=== PATIENT | female | born 1990 | race Caucasian/White ===

== ENCOUNTER 2020-03-05 08:45 | Outpatient (REF) | payer OTHER, SELFPAY | END 2020-03-05 08:46 | disposition home or self-care (01) | LOC: HO.LAB 08:45 | PROVIDERS: PCP Internal Medicine; Referring Provider Internal Medicine; Visit Provider Obstetrics & Gynecology | DX: R87.810 Cervical high risk human papillomavirus (HPV) DNA test positive (principal) | CPT/HCPCS: 88305 ==

== ENCOUNTER 2020-03-31 16:40 | Outpatient (REF) | payer OTHER, SELFPAY ==
[2020-03-31 17:46] LABS: MANUAL DIFF FLAG NO
[2020-03-31 17:52] LABS: Prothrombin Time 11.9 SEC (10.8-13.0)
[2020-03-31 18:03] LABS: Basophils Absolute Auto 0.1 X10*3/uL (0.0-0.2); Eosinophils Absolute Auto 0.1 X10*3/uL (0.0-0.4); Eosinophils Percent Auto 1.4 % (0-4); Imm Gran Abs Auto 0.01 X10*3/uL (0.00-0.03); Imm Gran Pct Auto 0.1 % (0.0-0.4); Lymphocytes Absolute Auto 2.2 X10*3/uL (1.2-4.9); Lymphocytes Percent Auto 30.6 % (20-40); Mean Corpuscular HGB Conc 33.3 g/dl (31.0-35.0); Mean Corpuscular Volume 92.9 fL (80-98); Mean Platelet Volume 12.2 fL (9.4-12.3); Monocytes Absolute Auto 0.5 X10*3/uL (0.1-1.2); Monocytes Percent Auto 7.4 % (2-11); Neutrophils Absolute Auto 4.3 X10*3/uL (2.0-8.3); Neutrophils Percent Auto 59.5 % (45-73); Platelet Count 247 X10*3/uL (160-400); Red Blood Count 4.52 X10*6/uL (4.20-5.50); Red Cell Distribution Width 12.4 % (11.0-16.0); White Blood Count 7.2 X10*3/uL (4.8-10.8)
[2020-03-31 18:10] LABS: Anion Gap 10 (12-20); Blood Urea Nitrogen 9 mg/dL (9-16); Carbon Dioxide 29 mmol/L (22-29); Chloride 102 mmol/L (96-108); Potassium 4.3 mmol/l (3.3-5.1); Sodium 137 mmol/L (135-145)
[2020-03-31 18:11] LABS: Alanine Aminotransferase 21 U/L (0-31); Albumin Level 4.4 g/dL (3.5-5.0); Alkaline Phosphatase 86 U/L (39-117); Aspartate Amino Transferase 22 U/L (5-31); Bilirubin Total 0.5 mg/dL (0.0-1.0); Calcium 9.7 mg/dL (8.4-10.2); Estimated Glomerular Filt Rate > 60; Glucose Random 83 mg/dL (60-115); Total Protein 7.3 g/dL (6.5-8.0)
[2020-03-31 18:33] LABS: Vitamin D 25-OH Total 17.9 ng/mL (>30)
== END 2020-03-31 16:41 | disposition home or self-care (01) ==
LOC: HO.LAB 16:40
PROVIDERS: Visit Provider Internal Medicine Gastroenterology
DX: K70.10 Alcoholic hepatitis without ascites (principal)
CPT/HCPCS: 36415; 80053; 82306; 85025; 85610

== ENCOUNTER → 2020-04-01 09:03 | Outpatient (BNVA) | payer OTHER, SELFPAY | PROVIDERS: PCP Physician Assistant; Visit Provider Internal Medicine Gastroenterology | DX: K76.0 Fatty (change of) liver, not elsewhere classified (principal) | CPT/HCPCS: 99212 ==

== ENCOUNTER 2020-04-14 09:02 | Outpatient (REF) | payer OTHER, SELFPAY ==
--- NOTE | 2020-04-14 09:05 | US_ITS ---
EXAMINATION: US COMPLETE ABDOMEN WITH LIVER ELASTOGRAPHY CLINICAL INFORMATION: Fatty change of liver. COMPARISON: None. TECHNIQUE: Real-time imaging of the abdominal viscera. Noninvasive ultrasound liver fibrosis assessment is performed using Tyrel ElastPQ point quantification shear wave elastography (pSWE) with a 5 MHz transducer. Multiple elastography samples are obtained. FINDINGS: PANCREAS: Normal. The visualized pancreatic head and body are normal in appearance. The remainder of the pancreas is obscured from visualization by the overlying bowel gas. ABDOMINAL AORTA: The proximal, middle, and distal aortic segments are normal in caliber. INFERIOR VENA CAVA: Visualized portions are normal. LIVER: Normal. The liver demonstrates normal size, contour and echogenicity. No focal lesion or intrahepatic biliary duct dilatation. The right lobe measures 13.9 cm in length. The left lobe measures 12.9 cm in length. There is hepatopedal flow seen in middle portal vein on Doppler exam. Shear wave elastography provides a median stiffness of 1.55 m/s (reference: normal median stiffness is 0.81 - 1.22 m/s). The IQR/median stiffness to assess sampling precision is 0.08 (reference: optimal IQR/median stiffness is under 0.3). GALLBLADDER: Normal. The gallbladder is physiologically distended without evidence of stones, sludge, polyps, wall thickening or pericholecystic fluid. COMMON BILE DUCT: Normal in caliber measuring 0.2 cm in diameter. RIGHT KIDNEY: Normal. No hydronephrosis. No renal calculi or focal parenchymal lesions. The kidney measures 11.2 cm in maximum dimension. LEFT KIDNEY: Normal. No hydronephrosis. No renal calculi or focal parenchymal lesions. The kidney measures 11.8 cm in maximum dimension. SPLEEN: Normal. The spleen measures 12.2 cm in maximum dimension. There is a small splenule noted measuring 0.9 x 1.0 x 1.0 cm. FREE FLUID: None. US/US abdomen comp w elastography IMPRESSION: 1. Unremarkable complete abdominal ultrasound. Small accessory splenule noted. 2. Elastography: [id number] liver fibrosis.
== END 2020-04-14 09:03 | disposition home or self-care (01) ==
LOC: HO.US 09:02
PROVIDERS: Visit Provider Internal Medicine Gastroenterology
DX: K76.0 Fatty (change of) liver, not elsewhere classified (principal)
CPT/HCPCS: 76705; 76981

== ENCOUNTER 2020-10-01 14:42 | Outpatient (REF) | payer OTHER, SELFPAY ==
[2020-10-01 15:34] LABS: Hematocrit 42.3 % (37-47); Hemoglobin 13.9 g/dl (12.0-16.0); Mean Corpuscular HGB Conc 32.9 g/dl (31.0-35.0); Mean Corpuscular Hemoglobin 30.8 pg (27.0-33.0); Mean Corpuscular Volume 93.8 fL (80-98); Platelet Count 178 X10*3/uL (160-400); Red Blood Count 4.51 X10*6/uL (4.20-5.50); Red Cell Distribution Width 13.8 % (11.0-16.0); White Blood Count 6.6 X10*3/uL (4.8-10.8)
[2020-10-01 15:51] LABS: Alanine Aminotransferase 251 U/L (0-31); Albumin Level 4.6 g/dL (3.5-5.0); Alkaline Phosphatase 82 U/L (39-117); Anion Gap 13 (12-20); Aspartate Amino Transferase 148 U/L (5-31); Bilirubin Direct 0.2 mg/dL (0.0-0.5); Bilirubin Total 0.5 mg/dL (0.0-1.0); Blood Urea Nitrogen 11 mg/dL (9-16); Calcium 9.8 mg/dL (8.4-10.2); Carbon Dioxide 26 mmol/L (22-29); Chloride 102 mmol/L (96-108); Estimated Glomerular Filt Rate > 60; Glucose Random 93 mg/dL (60-115); Potassium 4.2 mmol/L (3.3-5.1); Sodium 137 mmol/L (135-145); Total Protein 7.5 g/dL (6.5-8.0)
[2020-10-01 16:04] LABS: Gamma Glutamyl Transpeptidase 176 U/L (7-33)
[2020-10-01 16:07] LABS: TSH reflex Free T4 0.56 uIU/mL (0.32-4.0)
== END 2020-10-01 14:43 | disposition home or self-care (01) ==
LOC: HO.LAB 14:42
PROVIDERS: Internal Medicine Gastroenterology; PCP Physician Assistant; Visit Provider Physician Assistant
DX: K76.0 Fatty (change of) liver, not elsewhere classified (principal); I10 Essential (primary) hypertension
CPT/HCPCS: 36415; 80053; 80076; 82248; 82977; 84443; 85027

== ENCOUNTER 2022-08-10 16:30 | Outpatient (REF) | payer BC, SELFPAY ==
[2022-08-10 17:23] LABS: Hematocrit 42.1 % (37.0-47.0); Hemoglobin 13.6 g/dl (12.0-16.0); Mean Corpuscular HGB Conc 32.3 g/dl (31.0-35.0); Mean Corpuscular Hemoglobin 29.4 pg (27.0-33.0); Mean Corpuscular Volume 90.9 fL (80.0-98.0); Mean Platelet Volume 11.8 fL (9.4-12.3); Platelet Count 245 X10*3/uL (160-400); Red Blood Count 4.63 X10*6/uL (4.20-5.50); Red Cell Distribution Width 13.2 % (11.0-16.0); White Blood Count 6.9 X10*3/uL (4.8-10.8)
[2022-08-10 18:03] LABS: Alanine Aminotransferase 15 U/L (0-31); Albumin Level 4.4 g/dL (3.5-5.0); Alkaline Phosphatase 73 U/L (39-117); Anion Gap 15 (12-20); Aspartate Amino Transferase 13 U/L (5-31); Bilirubin Direct < 0.2 mg/dL (0.0-0.5); Bilirubin Total 0.3 mg/dL (0.0-1.0); Blood Urea Nitrogen 12 mg/dL (9-16); Calcium 9.5 mg/dL (8.4-10.2); Carbon Dioxide 25 mmol/L (22-29); Chloride 103 mmol/L (96-108); Cholesterol 245 mg/dL; Estimated Glomerular Filt Rate > 60; Glucose Random 82 mg/dL (60-115); HDL Cholesterol 60 mg/dL; LDL Cholesterol Calculated 164 mg/dl; Potassium 4.1 mmol/L (3.3-5.1); Sodium 139 mmol/L (135-145); Total Protein 6.8 g/dL (6.5-8.0); Triglycerides 109 mg/dL
[2022-08-10 18:18] LABS: Thyroid Stimulating Hormone 0.36 uIU/mL (0.32-4.0)
== END 2022-08-10 16:31 | disposition home or self-care (01) ==
LOC: HO.LAB 16:30
PROVIDERS: PCP Physician Assistant; Visit Provider Internal Medicine
DX: Z00.00 Encounter for general adult medical examination without abnormal findings (principal); E03.9 Hypothyroidism, unspecified
CPT/HCPCS: 36415; 80048; 80061; 80076; 84443; 85027

== ENCOUNTER 2022-10-28 11:34 | Outpatient (REF) | payer BC, SELFPAY ==
[2022-10-29 05:51] LABS: CT PCR NOT DETECTED (Not Detect.); NG PCR NOT DETECTED (Not Detect.)
[2022-10-29 14:51] LABS: BV Int Neg Control Negative (Negative); BV Int Pos Control Positive (Positive)
[2022-11-01 22:08] LABS: HPV mRNA E6/E7 rflx Not Detected (Not Detected)
== END 2022-10-28 11:35 | disposition home or self-care (01) ==
LOC: HO.LNP 11:34
PROVIDERS: PCP Physician Assistant; Visit Provider Advanced Practice Midwife
DX: Z01.419 Encounter for gynecological examination (general) (routine) without abnormal findings (principal); N87.0 Mild cervical dysplasia; R87.810 Cervical high risk human papillomavirus (HPV) DNA test positive; Z12.39 Encounter for other screening for malignant neoplasm of breast; Z20.2 Contact with and (suspected) exposure to infections with a predominantly sexual mode of transmission
CPT/HCPCS: 0353U; 87480; 87510; 87624; 87660; 88142

== ENCOUNTER 2023-04-24 09:03 | Outpatient (REF) | payer BC, SELFPAY ==
[2023-04-25 11:06] LABS: CT PCR NOT DETECTED (Not Detect.); NG PCR NOT DETECTED (Not Detect.)
[2023-04-25 14:27] LABS: BV Int Neg Control Negative (Negative); BV Int Pos Control Positive (Positive)
[2023-04-28 07:45] LABS: HPV mRNA E6/E7 rflx Not Detected (Not Detected)
== END 2023-04-24 09:04 | disposition home or self-care (01) ==
LOC: HO.LNP 09:03
PROVIDERS: PCP Physician Assistant; Visit Provider Advanced Practice Midwife
DX: Z12.4 Encounter for screening for malignant neoplasm of cervix (principal); Z11.51 Encounter for screening for human papillomavirus (HPV); N89.8 Other specified noninflammatory disorders of vagina; Z20.2 Contact with and (suspected) exposure to infections with a predominantly sexual mode of transmission; R87.610 Atypical squamous cells of undetermined significance on cytologic smear of cervix (ASC-US)
CPT/HCPCS: 0353U; 87480; 87510; 87624; 87660; 88142

== ENCOUNTER 2023-04-24 09:03 | Outpatient (AMB) | payer BC, SELFPAY ==
[2023-04-24 09:06] VITALS: BP 112/70; BMI 19.7
--- NOTE | 2023-04-24 09:06 | A.OFFVIS_ITS ---
Intake Vital Signs 04/24/23 09:06 Height 5 ft 7 in Weight 126 lb BMI 19.7 BP 112/70 Intake Visit Reasons: Repeat pap Corrugated Sheet Material Sheeter Required: No Information Interpreted: non-clinical & clinical Welder And Fitter: Welder And Fitter Present (Maite) Allergies No Known Allergies [No Known Allergies*] Allergy (Verified 04/24/23 09:08) Medication List - Last Reconciled 04/24/23 by Saloni Garcia CNM No Known Home Meds Is last menstrual period known: Yes Last menstrual period: 04/17/23 Post menopausal: No HPI Repeat pap HPI Details Is here for a repeat Pap smear. She had had a history of abnormal Paps in the past and then a gap of care during the pandemic and the Pap was done at her 1st annual exam last October however she had her. And it came back unsatisfactory. She is not sexually active now but if she is its with women in the last time was this summer. Testing for STIs along with the Pap is acceptable to her to be sure but she does not feel she needs blood work. She says she is in good health she works for the [employer]. She has her PCC. [facility] Medical History Hepatic steatosis Vitamin D deficiency Alcohol-induced polyneuropathy Alcoholic hepatitis with ascites Alcohol abuse Surgical History History of abdominal paracentesis History of ankle surgery No significant past surgical history Family History Paternal Grandmother Breast cancer Maternal Grandfather Colon cancer Father Family hx of prostate cancer Mother Hx of skin cancer, basal cell Social History Housing: Apartment Alcohol intake: current Alcohol intake frequency: a few times a week Patient Tobacco Use Status: Former Tobacco user Tobacco use type: Cigarette e-Cigarette/Vaping Use: Currently Using Second Hand Smoke Exposure: No Substance Use Type: Marijuana service: No Current occupational status: employed Sexual orientation: Lesbian/Betancourt/Homosexual Gender identity: Female Cognitive needs: No Hearing needs: No Vision needs: No Female Reproductive History Menstrual Age of Menarche: 13 Duration of menses: 3-5 days Date of last menstrual period: 04/17/23 control method: none Total pregnancies: 0 Date of last pap smear: 10/31/22 (unsatisfactory) Physical Exam Vital Signs: BMI result Body Mass Index 19.7 External Female Exam: normal external appearance and normal appearance of the urethra Speculum Exam - Vagina: normal appearance of the vagina and abnormal vaginal discharge (Yellowish runny may be consistent with post menses testing done) Speculum Exam - Cervix: normal appearance of the cervix (There is a red ish at 10:00 o'clock extending out from os.) and Cervical os closed Assessment & Plan Assessment & Plan (1) Atypical squamous cell changes of undetermined significance (ASCUS) on cervical cytology with positive high risk human papilloma virus (HPV): Comment: Pap done 10/28/2022 menses present... Code(s): R87.610 - Atypical squamous cells of undetermined significance on cytologic smear of cervix (ASC-US); R87.810 - Cervical high risk human papillomavirus (HPV) DNA test positive (2) Vaginal discharge: Code(s): N89.8 - Other specified noninflammatory disorders of vagina Plan Pap was done and testing for STIs was also done reviewed how she can get the results she is on the portal but we will see contact her either way about the Pap. She feels she is in good health otherwise she would prefer for her annual exams to be scheduled 1 year from now so that can be done at the front line supervisor. She said she did not need any other control and if she did have sex with men she would use condoms. 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
== END 2023-04-24 09:41 | disposition home or self-care (01) ==
PROVIDERS: PCP Physician Assistant; Visit Provider Advanced Practice Midwife
DX: R87.610 Atypical squamous cells of undetermined significance on cytologic smear of cervix (ASC-US) (principal); R87.810 Cervical high risk human papillomavirus (HPV) DNA test positive; N89.8 Other specified noninflammatory disorders of vagina
CPT/HCPCS: 99213

== ENCOUNTER 2023-08-24 14:45 | Outpatient (AMB) | payer BC, SELFPAY ==
--- NOTE | 2023-08-24 14:54 | A.OFFPC_ITS ---
Vital Signs 08/24/23 14:57 Height 5 ft 7 in Weight 127 lb 4 oz BMI 19.9 BP 100/70 Blood Pressure Location Lt brachial Position Sitting Pulse 73 Pulse Source Pulse Oximeter Pulse Oximetry (%) 100 Oxygen Delivery Method Room Air Intake Visit Reasons: Annual Physical Intake Note: Patient is here today for a physical. Flux Tube Attendant Required: No Talent Acquisition Relationship Manager: Not Required per policy Accompanied by: Self / Same As Patient Allergies No Known Allergies [No Known Allergies*] Allergy (Verified 08/24/23 14:57) Tobacco use date assessed: 08/24/23 Dental Screening Dental Screen Date: 08/24/23 Did you have a dental visit in the last 12 months?: Yes Did you have a dental problem in the last 6 months where you did not have access to dental care?: No Was dental information given to patient?: Patient has dentist HPI Annual Physical HPI Details 32-year-old female presents to the offic e requesting an annual physical. PFSH Medical History Hepatic steatosis Vitamin D deficiency Alcohol-induced polyneuropathy Alcoholic hepatitis with ascites Alcohol abuse Surgical History History of abdominal paracentesis History of ankle surgery Family History Paternal Grandmother Breast cancer Maternal Grandfather Colon cancer Father Family hx of prostate cancer Mother Hx of skin cancer, basal cell Social History Housing: Apartment Alcohol intake: current Alcohol intake frequency: does not drink Patient Tobacco Use Status: Former Tobacco user Tobacco use type: Cigarette e-Cigarette/Vaping Use: Currently Using Frequency of e-Cigarette/Vaping Use: Daily Second Hand Smoke Exposure: No Substance Use Type: Marijuana service: No Current occupational status: employed Sexual orientation: Lesbian/Betancourt/Homosexual Gender identity: Female Cognitive needs: No Hearing needs: No Vision needs: Yes (glasses) Female Reproductive History Menstrual Age of Menarche: 13 Questionnaire PHQ-9 Over the last 2 weeks, how often have you been bothered by any of the following problems? 1. Little interest or pleasure in doing things: not at all 2. Feeling down, depressed, or hopeless: not at all 3. Trouble falling or staying asleep, or sleeping too much: not at all 4. Feeling tired or having little energy: not at all 5. Poor appetite or overeating: not at all 6. Feeling bad about yourself - or that you are a failure or have let yourself or your family down: not at all 7. Trouble concentrating on things, such as reading the newspaper or watching television: not at all 8. Moving or speaking so slowly that other people could have noticed. Or the opposite - being so fidgety or restless that you have been moving around a lot more than usual: not at all 9. Thoughts that you would be better off or of hurting yourself in some way: not at all Total score: 0 Depression Screening Interpretation: Negative Depression Screening Done: Yes Source: Developed by Drs. Vega Zarco, Stephanie Traore, Francisco Javier Harp and colleagues, with an educational lalo from [employer]. Thrive Questionnaire Date Thrive assessed: 08/24/23 I am a: Patient What is your living situation today?: I have a steady place to live Within the past 12 months, did the food you bought not last and you didn't have the money to get more?: Never true Within the past 12 months, did you worry whether your food would run out before you got money to buy more?: Never true Do you have trouble paying for medicines?: No Do you have trouble getting transportation to medical appointments?: No Do you have trouble paying your heating and electricity bill?: No Do you have trouble taking care of your child, family member or friend?: No Do you have trouble with day-to-day activities such as bathing, preparing meals, shopping, managing finances, etc.?: No Are you currently unemployed and looking for a job?: No Are you interested in more education?: No Currently or been in a relationship where the following occur: no concerns reported THRIVE Score: 0 AUDIT C Alcohol Use Questionnaire (AUDIT-C) 1. How often do you have a drink containing alcohol?: Never Total Score: 0 TIEN-7 AMB Questionnaire TIEN-7 Date TIEN - 7 assessed: 08/24/23 Feeling nervous, anxious, or on edge: 1 = Several days Not being able to stop or control worryin = Not at all Worrying too much about different things: 0 = Not at all Trouble relaxin = Several days Being so restless that it is hard to sit still: 1 = Several days Becoming easily annoyed or irritable: 0 = Not at all Feeling afraid as if something awful might happen: 0 = Not at all Total TIEN-7 score (0-4 normal; 5-9 mild; 10-14 moderate; 15-21 severe): 3 Source: Developed by Drs. Vega Zarco, Stephanie Traore, Francisco Javier Harp and colleagues, with an educational lalo from [employer]. Physical exam (Primary Care) Vital Signs: Last Vital Signs Pulse 73 08/24/23 14:57 BP 100/70 08/24/23 14:57 Pulse Ox 100 08/24/23 14:57 Oxygen Delivery Method Room Air 08/24/23 14:57 BMI result Body Mass Index 19.9 Tobacco/Smoking Status: Tobacco use Status Tobacco use date assessed 08/24/23 08/24/23 14:58 Patient Tobacco Use Status Former Tobacco user 08/24/23 15:04 Tobacco use type Cigarette 08/24/23 15:04 e-Cigarette/Vaping Use Currently Using 08/24/23 15:04 PHQ-9: PHQ-9 Score PHQ-9: Total score 0 08/24/23 14:58 Depression Screening Interpretation: Negative Thrive Assessment: Date of Thrive Assessment Date Thrive assessed 08/24/23 08/24/23 14:58 Currently or been in a relationship where the following occur: no concerns reported Assessment and Plan Assessment & Plan (1) Annual physical exam: Code(s): Z00.00 - Encounter for general adult medical examination without abnormal find ings Plan: Patient in good health. Blood work has been ordered. Continues to abstain from alcohol. Coding Level of Care Code Est Pt Prev Care 18-39y(49701) Diagnoses Annual physical exam Z00.00
[2023-08-24 14:57] VITALS: BP 100/70; PULSE 73; O2SAT 100; BMI 19.9
== END 2023-08-24 16:05 | disposition home or self-care (01) ==
PROVIDERS: PCP Physician Assistant; Visit Provider Internal Medicine
DX: Z00.00 Encounter for general adult medical examination without abnormal findings (principal)
CPT/HCPCS: 99395

== ENCOUNTER 2023-11-07 15:05 | Outpatient (REF) | payer BC, SELFPAY ==
[2023-11-08 03:30] LABS: CT PCR NOT DETECTED (Not Detect.); NG PCR NOT DETECTED (Not Detect.)
[2023-11-08 08:43] LABS: Bacterial Vaginosis PCR NEGATIVE (Negative); Candida Group PCR DETECTED (Not Detect); Candida glab krusei PCR NOT DETECTED (Not Detect); Trichomonas vaginalis PCR NOT DETECTED (Not Detect)
[2023-11-13 20:33] LABS: HPV mRNA E6/E7 rflx Not Detected (Not Detected)
== END 2023-11-07 15:06 | disposition home or self-care (01) ==
LOC: HO.LAB 15:05
PROVIDERS: PCP Physician Assistant; Visit Provider Advanced Practice Midwife
DX: Z01.419 Encounter for gynecological examination (general) (routine) without abnormal findings (principal); Z11.3 Encounter for screening for infections with a predominantly sexual mode of transmission; Z11.51 Encounter for screening for human papillomavirus (HPV); N89.8 Other specified noninflammatory disorders of vagina; N87.0 Mild cervical dysplasia
CPT/HCPCS: 0352U; 0353U; 87624; 88142

== ENCOUNTER 2023-11-07 15:05 | Outpatient (AMB) | payer BC, SELFPAY ==
--- NOTE | 2023-11-07 15:11 | MHC.OFFVIS ---
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 She had an abnormal Pap smear and biopsy in 2019 but did not return for care she returned for care last year and her Pap smear came back unsatisfactory and a repeat Pap was within normal limits in April. At that time she was sexually active with a female partner and did not need control or STI testing currently she has a new male partner and it occurs to her that she probably needs to think about control. Her periods last 5-7 days. She does not smoke but she does vape she did not think she had any particular worries about STIs because she was thinking that testing for HIV in other issues had to do with substance use and she has been clean for a few years with no exposures on that realm. She is interested in talking about control. 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 She has testing blood work that she has to do for her primary care provider she had a history of problems with her liver related to past substance use but she says her liver is good now. [facility] Medical History Hepatic steatosis Vitamin D deficiency Alcohol-induced polyneuropathy Alcoholic hepatitis with ascites Alcohol abuse Surgical History History of abdominal paracentesis History of ankle surgery Family History Paternal Grandmother Breast cancer Maternal Grandfather Colon cancer Father Family hx of prostate cancer Mother Hx of skin cancer, basal cell Social History Housing: Apartment Alcohol intake: current Alcohol intake frequency: does not drink Patient Tobacco Use Status: Former Tobacco user Tobacco use type: Cigarette e-Cigarette/Vaping Use: Currently Using Second Hand Smoke Exposure: No Substance Use Type: Marijuana service: No Current occupational status: employed Sexual orientation: Lesbian/Betancourt/Homosexual Gender identity: Female Cognitive needs: No Hearing needs: No Vision needs: Yes (glasses) Female Reproductive History Menstrual Age of Menarche: 13 Duration of menses: 6-7 days Date of last menstrual period: 10/30/23 control method: none Total pregnancies: 0 Date of last pap smear: 04/25/23 (negative) History of abnormal pap smear: Yes (03/21/2019,abn) Physical Exam Vital Signs: Last Vital Signs BP 118/68 11/07/23 15:12 BMI result Body Mass Index 19.4 Const General: healthy appearing, comfortable, no acute distress, well developed and alert Nutritional Appearance: average body habitus Orientation/consciousness: patient oriented x3 Limitations: no limitations HEENT Head: Yes normocephalic Neck Neck: Yes normal visual inspection Chest Chest palpation & inspection: normal inspection of the chest Breast/axilla inspection: normal inspection of the breasts and normal inspection of the axillae Breast/axilla palpation: normal palpation of the breasts and normal palpation of the axillae Resp Effort & Inspection: normal respiratory effort GI Inspection: Yes normal to inspection, No Abdominal wall edema and No distended Palpation (GI): Soft to palpation and nontender Other: External exam within normal limits vagina pink and moist cervix nulliparous pink smooth normal scant whitish discharge uterus midposition mobile nontender adnexa nontender not enlarged good tone with Kegel. General: Yes bladder normal to palpation External Female Exam: normal external appearance and normal appearance of the urethra Speculum Exam - Vagina: normal appearance of the vagina, normal palpation and normal vaginal discharge Speculum Exam - Cervix: normal appearance of the cervix, normal palpation and nontender Bimanual exam- vagina & uterus: normal bimanual exam, normal palpation, uterine size normal, bladder normal to palpation, consistency normal, normal palpation, uterine mobility normal, uterine shape normal, No Cervical tenderness present, non-tender and no cervical motion tenderness Bimanual Exam- Adnexa, other: normal adnexae, no masses, normal and No adnexal tenderness Neuro General: patient oriented x3 Results Reviewed Results Reviewed: Name: Reji Lewisllian Age/Sex: 32/F Attending: Saloni Garcia CNM : 1990 Submitted by: Saloni Garcia CNM Copies to: Benitez Gracia PA-C MR #: [id number] Status: DEP REF Collected: 04/24/23 Location: [facility] Received: 04/25/23 Interpretation Satisfactory for evaluation. Abundant inflammation. Negative for intraepithelial lesion or malignancy. HPV mRNA E6/E7: NOT DETECTED This assay detects E6/E7 viral messenger RNA (mRNA) from 14 high-risk HPV types (16, 18, 31, 33, 35, 39, 45, 51, 52, 56, 58, 59, 66, 68) HPV testing performed by [facility], [place], [place]. See reference laboratory portion of the EMR for entire report. Clinical Information LMP: 04/17/23 Previous PAP test: 10/31/22, WNL Other history: Unsatisfactory cytological smear of cervix Material Received ThinPrep-Cervical Copies To Benitez Gracia PA-C [address] [place] [address] [address] [id number] [place] [address] [place] [address] Electronically Signed By: MYRIAM Zuniga (ASCP) 05/01/23 1340 The Pap Test is a screening procedure with the inherent possibility of both false negative and false positive results. Results should be interpreted in the context of historic and current clinical findings. Reliability of the Pap Test is enhanced by performing the test on a regular repetitive basis. Patient: Theodora Lewis Age/Sex: 32/F MR#: [id number] Page 1 of 1 Name: Theodora Lewis Specimen #: [id number] Age/Sex: 29/F Attending: Zachary Thorpe MD : 1990 Submitted by: Zachary Thorpe MD Collected: 03/05/20 MR #: [id number] Received: 03/06/20 Status: DEP REF Location: [facility] Diagnosis A. Cervix, 12 o'clock, biopsy: - Low-grade squamous intraepithelial lesion (BIBIANA 1) - No endocervical epithelium seen. B. Cervix, 6 o'clock, biopsy: - Low-grade squamous intraepithelial lesion (BIBIANA 1) - Inflamed endocervical epithelium without atypia. C. Cervix, 2 o'clock, biopsy: Inflamed cervical transformation zone mucosa with reactive changes; no atypia seen. D. Endocervix, curettage: Fragments of endocervical epithelium within normal limits; no atypia seen. COMMENT: The findings are concordant with the patient's recent Pap/cytology specimen (19:C2156; ASCUS with positive HPV) - slide reviewed. Clinical History ACUS, HPV+ Microscopic Description A-D. Microscopic sections reviewed. Material Received A. Cx bx at 12 o'clock B. Cx bx at 6 o'clock C. Cx bx at 2 o'clock D. ECC Gross Description Received in four parts. Part A: Received in formalin labeled Cx bx @ 12 o'clock is a 0.4 cm. in greatest dimension, glistening, semitranslucent, rubbery, kimble, wedge-shaped fragment of mucosa, which is submitted in toto in a single cassette labeled A. Part B: Received in formalin labeled Cx bx @ 6 o'clock is a 0.35 cm. in greatest dimension, glistening, semitranslucent, rubbery, kimble, rectangular fragment of mucosa, which is submitted in toto in a single cassette labeled B. Patient: Theodora Lewis Age/Sex: 29/F MR#: [id number] Page 1 of 2 Assessment & Plan Assessment & Plan (1) Atypical squamous cell changes of undetermined significance (ASCUS) on cervical cytology with positive high risk human papilloma virus (HPV): Comment: Pap done 10/28/2022 menses present- unaatisfact. repeated 04/24/23= neg w neg hpv Code(s): R87.610 - Atypical squamous cells of undetermined significance on cytologic smear of cervix (ASC-US); R87.810 - Cervical high risk human papillomavirus (HPV) DNA test positive Category: Medical (2) Well woman exam with routine gynecological exam: Code(s): Z01.419 - Encounter for gynecological examination (general) (routine) without abnormal findings Category: Medical (3) Breast cancer screening: Code(s): Z12.39 - Encounter for other screening for malignant neoplasm of breast Category: Medical (4) Encounter for screening examination for sexually transmitted disease: Code(s): Z11.3 - Encounter for screening for infections with a predominantly sexual mode of transmission Category: Medical (5) control counseling: Comment: Reviewed all methods including drawbacks and side effects. Code(s): Z30.09 - Encounter for other general counseling and advice on contraception Category: Medical (6) BCP ( control pills) initiation: Comment: Rx sent 11/07/2023 low-dose OCPs. Patient will be getting all of her fasting baseline labs via her primary orders soon consider repeating LFTs in future because of her history. Code(s): Z30.011 - Encounter for initial prescription of contraceptive pills Category: Medical (7) Alcohol use disorder: Comment: Went to rehab, has been sober/in recovery for one year and is doing well, 10/28/22. Category: Medical (8) Hepatic steatosis: Code(s): K76.0 - Fatty (change of) liver, not elsewhere classified Category: Medical (9) BIBIANA I (cervical intraepithelial neoplasia I): Comment: Pap done 10/28/2022 menses present... Pap is unsatisfactory due to insufficient cellular component so that needs to be repeated, HPV however was negative. Code(s): N87.0 - Mild cervical dysplasia Category: Medical Plan See HPI. -----Discussed in this visit the following: healthy balanced diet, regular and consistent exercise, getting recommended health screens, doing the best she can for her particular health concerns, kegel exercises, pap smear screening and followup recommendations, mammography screening and SBE, normal changes in cycles in her life stage--- . Pap smear done secondary to her specific history. Additionally testing done during exam for gonorrhea chlamydia trichomoniasis Gardnerella and Elzbieta and testing offered for blood work for HIV hep B hep C and syphilis after some consideration she did accept the offer for the blood work orders and her plan is to do them when she gets her primary fasting blood work done. Discussed safer sex and also reviewed all of the methods of control and their side effects. -I reviewed with the patient, all of the currently common used methods of control that are available. We reviewed how they work in the body, how they are taken, common side effects, uncommon side effects, precautions, and contraindications. -Discussed also factors that influence their effectiveness and use, and womens satisfaction with the method. -Discussed how each are used, and drawbacks of each method as well. -Methods covered included: condoms, control pills, control patches, control rings, Depo-Provera, Nexplanon, Mirena and Kyleena IUDs, and ParaGard IUDs. All of the above methods were covered in great detail including their side effect profiles and common experiences that women have and ways to mitigate against the negative experiences including attention to diet and exercise patient's with bleeding challenges that may occur her and efforts to time the initiation of the method to this start of the menstrual period. She decided that she would start on pills discussed the concern about her history of liver issues and that if follow-up labs reveal that there was any indication of concern with her liver then we would address that issue at that point. Discussed that due are no studies about the safety of vaping and control pills however she is not sedentary and she is also not obese however she does have the history of the liver problems in the past. Orders: Orders CT NG by PCR Today Z11.3 - Encounter for screening for infections with a predominantly sexual mode of transmission Bacterial Vaginosis Panel Today N89.8 - Other specified noninflammatory disorders of vagina HIV Ab/Ag Today R87.610 - Atypical squamous cells of undetermined significance on cytologic smear of cervix (ASC-US), R87.810 - Cervical high risk human papillomavirus (HPV) DNA test positive, Z01.419 - Encounter for gynecological examination (general) (routine) without abnormal findings, Z11.3 - Encounter for screening for infections with a predominantly sexual mode of transmission, Z12.39 - Encounter for other screening for malignant neoplasm of breast, Z30.011 - Encounter for initial prescription of contraceptive pills, Z30.09 - Encounter for other general counseling and advice on contraception Syphilis Screen Today R87.610 - Atypical squamous cells of undetermined significance on cytologic smear of cervix (ASC-US), R87.810 - Cervical high risk human papillomavirus (HPV) DNA test positive, Z01.419 - Encounter for gynecological examination (general) (routine) without abnormal findings, Z11.3 - Encounter for screening for infections with a predominantly sexual mode of transmission, Z12.39 - Encounter for other screening for malignant neoplasm of breast, Z30.011 - Encounter for initial prescription of contraceptive pills, Z30.09 - Encounter for other general counseling and advice on contraception Pap Smear Today Z01.419 - Encounter for gynecological examination (general) (routine) without abnormal findings Hepatitis B Surface Antigen Today R87.610 - Atypical squamous cells of undetermined significance on cytologic smear of cervix (ASC-US), R87.810 - Cervical high risk human papillomavirus (HPV) DNA test positive, Z01.419 - Encounter for gynecological examination (general) (routine) without abnormal findings, Z11.3 - Encounter for screening for infections with a predominantly sexual mode of transmission, Z12.39 - Encounter for other screening for malignant neoplasm of breast, Z30.011 - Encounter for initial prescription of contraceptive pills, Z30.09 - Encounter for other general counseling and advice on contraception Hepatitis C Antibody Today R87.610 - Atypical squamous cells of undetermined significance on cytologic smear of cervix (ASC-US), R87.810 - Cervical high risk human papillomavirus (HPV) DNA test positive, Z01.419 - Encounter for gynecological examination (general) (routine) without abnormal findings, Z11.3 - Encounter for screening for infections with a predominantly sexual mode of transmission, Z12.39 - Encounter for other screening for malignant neoplasm of breast, Z30.011 - Encounter for initial prescription of contraceptive pills, Z30.09 - Encounter for other general counseling and advice on contraception Medications: New desog-e.estradiol/e.estradiol 0.15-0.02 mgx21 /0.01 mg x 5 1 tab PO DAILY 84 tabs 3RF Coding Level of Care Code Est Pt Prev Care 18-39y(78796) Diagnoses Atypical squamous cell changes of undetermined significance (ASCUS) on cervical cytology with positive high risk human papilloma virus (HPV) R87.610; R87.810 Well woman exam with routine gynecological exam Z01.419 Breast cancer screening Z12.39 Encounter for screening examination for sexually transmitted disease Z11.3 control counseling Z30.09 BCP ( control pills) initiation Z30.011 Alcohol use disorder F10.90 Hepatic steatosis K76.0 BIBIANA I (cervical intraepithelial neoplasia I) N87.0
[2023-11-07 15:12] VITALS: BP 118/68; BMI 19.4
== END 2023-11-07 16:21 | disposition home or self-care (01) ==
LOC: HO.HWSM 15:05
PROVIDERS: PCP Physician Assistant; Visit Provider Advanced Practice Midwife
DX: Z01.419 Encounter for gynecological examination (general) (routine) without abnormal findings (principal); R87.610 Atypical squamous cells of undetermined significance on cytologic smear of cervix (ASC-US); R87.810 Cervical high risk human papillomavirus (HPV) DNA test positive; Z30.011 Encounter for initial prescription of contraceptive pills; Z30.09 Encounter for other general counseling and advice on contraception; F10.90 Alcohol use, unspecified, uncomplicated; K76.0 Fatty (change of) liver, not elsewhere classified; N87.0 Mild cervical dysplasia
CPT/HCPCS: 99395

== ENCOUNTER 2024-02-05 08:07 | Outpatient (REF) | payer BC, SELFPAY ==
[2024-02-05 09:50] LABS: Hemoglobin 14.2 g/dl (12.0-16.0); Mean Corpuscular HGB Conc 33.8 g/dl (31.0-35.0); Mean Corpuscular Hemoglobin 29.8 pg (27.0-33.0); Mean Corpuscular Volume 88.1 fL (80.0-98.0); Mean Platelet Volume 11.4 fL (9.4-12.3); Platelet Count 253 X10*3/uL (160-400); Red Blood Count 4.77 X10*6/uL (4.20-5.50); Red Cell Distribution Width 12.4 % (11.0-16.0); White Blood Count 7.7 X10*3/uL (4.8-10.8)
[2024-02-05 10:24] LABS: Alanine Aminotransferase 10 U/L (0-31); Albumin Level 4.3 g/dL (3.5-5.0); Alkaline Phosphatase 50 U/L (39-117); Anion Gap 11 (12-20); Aspartate Amino Transferase 16 U/L (5-31); Bilirubin Direct 0.1 mg/dL (0.0-0.5); Bilirubin Total 0.7 mg/dL (0.0-1.0); Blood Urea Nitrogen 8 mg/dL (9-16); Calcium 9.9 mg/dL (8.4-10.2); Carbon Dioxide 27 mmol/L (22-29); Chloride 105 mmol/L (96-108); Cholesterol 185 mg/dL (<200); Estimated Glomerular Filt Rate > 60; Glucose Random 90 mg/dL (60-115); HDL Cholesterol 58 mg/dL (>40); LDL Cholesterol Calculated 110 mg/dL (<100); Potassium 3.6 mmol/L (3.3-5.1); Sodium 139 mmol/L (135-145); Total Protein 6.9 g/dL (6.5-8.0); Triglycerides 87 mg/dL (<150)
[2024-02-05 10:43] LABS: Thyroid Stimulating Hormone 0.94 uIU/mL (0.32-4.0)
[2024-02-05 11:02] LABS: Appearance Urine Cloudy; Color Urine Yellow; Glucose Urine UA Negative (Negative); Leukocyte Esterase Urine Negative (Negative); Nitrite Urine Negative (Negative); Specific Gravity - Urine >= 1.030 (1.005-1.025); Urine Blood Negative (Negative); Urine Ketones Trace mg/dL (Negative); Urine Protein Trace mg/dL (Neg-Trace)
[2024-02-05 13:27] LABS: Syphilis Screen Nonreactive (Nonreactive)
[2024-02-05 13:36] LABS: HIV AB/AG Nonreactive (Nonreactive); HIV Num 1 0.05 S/CO (0.00-0.99); Hepatitis B Surface Antigen Negative (Negative); ~Hepatitis C Antibody Nonreactive (Nonreactive)
== END 2024-02-05 08:08 | disposition home or self-care (01) ==
LOC: HO.LAB 08:07
PROVIDERS: Absent Provider Advanced Practice Midwife; PCP Physician Assistant; Visit Provider Internal Medicine
DX: Z01.419 Encounter for gynecological examination (general) (routine) without abnormal findings (principal); G62.1 Alcoholic polyneuropathy; R87.610 Atypical squamous cells of undetermined significance on cytologic smear of cervix (ASC-US); R87.810 Cervical high risk human papillomavirus (HPV) DNA test positive; Z11.3 Encounter for screening for infections with a predominantly sexual mode of transmission
CPT/HCPCS: 36415; 80048; 80061; 80076; 81003; 84443; 85027; 86780; 86803; 87340; 87389

== ENCOUNTER 2024-02-05 08:07 | Outpatient (AMB) | payer BC, SELFPAY ==
--- NOTE | 2024-02-05 08:19 | MHC.PC.OV ---
Vital Signs 02/05/24 08:21 Height 5 ft 7 in Weight 123 lb BMI 19.3 BP 110/70 Blood Pressure Location Lt brachial Position Sitting Intake Visit Reasons: [facility] Lead Consultant Required: No Accompanied by: Self / Same As Patient Allergies No Known Allergies [No Known Allergies*] Allergy (Verified 02/05/24 08:39) Medication List - Last Reconciled 02/05/24 by Deangelo Galindo MD No Known Home Meds Tobacco use date assessed: 08/24/23 Dental Screening Dental Screen Date: 08/24/23 HPI Mental Health HPI Details 33-year-old female presents to the office to discuss acute medical condition. Patient is reporting panic attacks at. 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 She sees things that are not present and at times has heard voices. She is clearly able to determine that these are not real. On more than 1 occasion, she had to stop work, go back to the post office and request a ride home. Also complains of lack of sleep. Patient has been intermittently taking medications for panic attacks in the past few years. She is not on any medication in the last year and a half. The last medication she tried was Lexapro in admits to being noncompliant to it. Patient smokes marijuana. Denies any other substance use, alcohol use. PFSH Medical History Hepatic steatosis Vitamin D deficiency Alcohol-induced polyneuropathy Alcoholic hepatitis with ascites Alcohol abuse Surgical History History of abdominal paracentesis History of ankle surgery Family History Paternal Grandmother Breast cancer Maternal Grandfather Colon cancer Father Family hx of prostate cancer Mother Hx of skin cancer, basal cell Social History Housing: Apartment Alcohol intake: current Alcohol intake frequency: does not drink Patient Tobacco Use Status: Former Tobacco user Tobacco use type: Cigarette e-Cigarette/Vaping Use: Currently Using Second Hand Smoke Exposure: No Substance Use Type: Marijuana service: No Current occupational status: employed Current occupational exposures/hazards: No Sexual orientation: Lesbian/Betancourt/Homosexual Gender identity: Female Cognitive needs: No Hearing needs: No Vision needs: Yes (glasses) Female Reproductive History Menstrual Age of Menarche: 13 Questionnaire PHQ-9 Over the last 2 weeks, how often have you been bothered by any of the following problems? 1. Little interest or pleasure in doing things: not at all 2. Feeling down, depressed, or hopeless: several days 3. Trouble falling or staying asleep, or sleeping too much: several days 4. Feeling tired or having little energy: several days 5. Poor appetite or overeating: not at all 6. Feeling bad about yourself - or that you are a failure or have let yourself or your family down: not at all 7. Trouble concentrating on things, such as reading the newspaper or watching television: several days 8. Moving or speaking so slowly that other people could have noticed. Or the opposite - being so fidgety or restless that you have been moving around a lot more than usual: several days 9. Thoughts that you would be better off or of hurting yourself in some way: not at all Total score: 5 Source: Developed by Drs. Vega Zarco, Stephanie Traore, Francisco Javier Harp and colleagues, with an educational lalo from [employer]. Thrive Questionnaire Date Thrive assessed: 02/05/24 I am a: Patient What is your living situation today?: I have a steady place to live Within the past 12 months, did the food you bought not last and you didn't have the money to get more?: Never true Within the past 12 months, did you worry whether your food would run out before you got money to buy more?: Never true Do you have trouble paying for medicines?: No Do you have trouble getting transportation to medical appointments?: No Do you have trouble paying your heating and electricity bill?: No Do you have trouble taking care of your child, family member or friend?: No Do you have trouble with day-to-day activities such as bathing, preparing meals, shopping, managing finances, etc.?: No Are you currently unemployed and looking for a job?: No Are you interested in more education?: No Please select the resources that you would like help with: None Currently or been in a relationship where the following occur: No concerns reported THRIVE Score: 0 AUDIT C Alcohol Use Questionnaire (AUDIT-C) 1. How often do you have a drink containing alcohol?: Never Total Score: 0 TIEN-7 AMB Questionnaire TIEN-7 Date TIEN - 7 assessed: 02/05/24 Feeling nervous, anxious, or on edge: 1 = Several days Not being able to stop or control worryin = Not at all Worrying too much about different things: 1 = Several days Trouble relaxin = Several days Being so restless that it is hard to sit still: 1 = Several days Becoming easily annoyed or irritable: 1 = Several days Feeling afraid as if something awful might happen: 0 = Not at all Total TIEN-7 score (0-4 normal; 5-9 mild; 10-14 moderate; 15-21 severe): 5 Source: Developed by Drs. Vega Zarco, Stephanie Traore, Francisco Javier Harp and colleagues, with an educational lalo from [employer]. Physical exam (Primary Care) Vital Signs: Last Vital Signs BP 110/70 02/05/24 08:21 BMI result Body Mass Index 19.3 Tobacco/Smoking Status: Tobacco use Status Tobacco use date assessed 08/24/23 02/05/24 08:20 Patient Tobacco Use Status Former Tobacco user 02/05/24 08:20 Tobacco use type Cigarette 02/05/24 08:20 e-Cigarette/Vaping Use Currently Using 02/05/24 08:20 PHQ-9: PHQ-9 Score PHQ-9: Total score 5 02/05/24 08:25 Thrive Assessment: Date of Thrive Assessment Date Thrive assessed 02/05/24 02/05/24 08:25 Currently or been in a relationship where the following occur: No concerns reported Const General: cooperative and healthy appearing Nutritional Appearance: well nourished Orientation/consciousness: patient oriented x3 Limitations: no limitations HENMT Head: Yes normal to inspection Eyes General: appearance normal, both eyes and all related structures Neck Neck: Yes normal visual inspection Chest Chest palpation & inspection: normal palpation of entire chest wall Resp Effort & Inspection: normal respiratory effort Neuro General: patient oriented x3 Assessment and Plan Assessment & Plan (1) Anxiety disorder, unspecified: Code(s): F41.9 - Anxiety disorder, unspecified Plan: This is a preliminary diagnosis. Seroquel has been started to help with sleep. [facility]. Patient is going to need the expertise of a psychiatrist to determine the origin of the visual and auditory hallucinations. Coding Level of Care Code Est Pt Level 4 (69668) Complex EM visit Add On G2211 Diagnoses Anxiety disorder, unspecified F41.9
[2024-02-05 08:21] VITALS: BP 110/70; BMI 19.3
== END 2024-02-05 08:39 | disposition home or self-care (01) ==
PROVIDERS: PCP Physician Assistant; Visit Provider Internal Medicine
DX: F41.9 Anxiety disorder, unspecified (principal)

== ENCOUNTER 2024-03-19 15:34 | Outpatient (AMB) | payer BC, SELFPAY ==
--- NOTE | 2024-03-19 16:15 | MHC.OFFVISPS ---
Intake Intake Visit Reasons: consult Occupational Therapist Aide Required: No Allergies No Known Allergies [No Known Allergies*] Allergy (Verified 02/05/24 08:39) Medication List - Last Reconciled 03/19/24 by Lizzie Coyle APRN quetiapine (Seroquel) 100 mg PO BEDTIME HPI- Psychiatric Chief Complaint: consult HPI Narrative: Patient is 33-year-old woman referred by her primary care physician for anxiety and auditory or visual hallucinations. Today the patient says that she only sees and hears hallucinations when she has not slept for days at a time. She reports that her sleep is episodically disrupted. She also reports anxiety several days a week and it periodically causes her great difficulty functioning. She minimizes depression but does have trouble concentrating focusing prioritizing planning completing tasks she reports lack of interest lack of pleasure in activities feeling down and hopeless and trouble sleeping. She is approximately 2-1/2 years sober from heavy alcohol use. She has been prescribed Seroquel but has only used it twice because it causes too much sedation. She also reports using trazodone Lexapro Prozac and Wellbutrin in the past none of which she found effective. Past Psychiatric History: History of inpatient treatment for alcohol addiction IOP for alcohol Subjective Subjective Subjective Medication Compliance: Yes Side effects from medications: No Review of Systems Medical Review of Systems: unchanged Mental Status Exam Mental Status Exam Patient Appearance: Appropriate Patient Orientation: Person, Place, Time and Situation Level of Consciousness: Awake, Appropriate and Alert Patient Behavior: Resistive to Care Mood Description: Withdrawn and Flat Affect Description: Withdrawn and Flat Patient Cognition Impaired: No Ability to Follow Directions: Good Speech Pattern: Clear and Monotone Memory Description: Intact Hallucinations: Auditory (minimizes) and Visual (minimizes) Delusions: Not Present Thought Process: Distracted Thought Content: positive for Loose Associations Judgement: Fair Assessment and Plan Assessment & Plan (1) TIEN (generalized anxiety disorder): Status: Acute Code(s): F41.1 - Generalized anxiety disorder (2) Insomnia: Status: Acute Qualifiers: Insomnia type: unspecified Qualified Code(s): G47.00 - Insomnia, unspecified Code(s): G47.00 - Insomnia, unspecified Plan pt declined risperdal or zyprexa declined buspar or sertraline agreed to amitriptyline 10mg at bedtime daily start magnesium glycinate 100mg BID stat vitamin B50 one tab daily retrun in 2-3 weeks Medications: New amitriptyline 10 mg PO BEDTIME 30 tabs 2RF Discontinued quetiapine (Seroquel) Discontinued Reason: Doctor's Order 100 mg PO BEDTIME 60 tabs 0RF Counseling and coordination of Care Pt. Self Management counseling: Maintenance-social rhythm, Mod caffeine/ETOH intake, Sleep hygiene and Behavior activation Medication management counseling: Effectiveness, Side effects, Dosing range, Duration, Drug interaction and Adherence Diagnosis and Prognosis Counseling: Accuracy of diagnosis, Prognosis over time, Impact of diagnosis on life functions, Impact of family relationship, Problematic behaviors secondary to diagnosis and Adequacy of current interventions Details: I spent 75 minutes reviewing the record, seeing the patient and documenting in the medical record. Counseling provided to the patient/caregiver as outlined below. Addressed patient/caregiver concerns regarding current medication regime including effective adherence. Addressed patient/caregiver concerns regarding diagnosis and prognosis including accuracy of diagnosis, prognosis over time, impact of diagnosis. Addressed patient/caregiver concerns regarding impact of recent stressors. PFSH Medical History Hepatic steatosis Vitamin D deficiency Alcohol-induced polyneuropathy Alcoholic hepatitis with ascites Alcohol abuse Surgical History History of abdominal paracentesis History of ankle surgery Family History Paternal Grandmother Breast cancer Maternal Grandfather Colon cancer Father Family hx of prostate cancer Mother Hx of skin cancer, basal cell Social History Housing: Apartment Alcohol intake: current Alcohol intake frequency: does not drink Patient Tobacco Use Status: Former Tobacco user Tobacco use type: Cigarette e-Cigarette/Vaping Use: Currently Using Second Hand Smoke Exposure: No Substance Use Type: Marijuana service: No Current occupational status: employed Current occupational exposures/hazards: No Sexual orientation: Lesbian/Betancourt/Homosexual Gender identity: Female Cognitive needs: No Hearing needs: No Vision needs: Yes (glasses) Social History: Patient grew up in [place] with both parents and a sister 3 years older than her. 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 She has recently started a new relationship and is dating. Substance History: Significant alcohol use in the past with alcohol-induced polyneuropathy alcohol hepatitis with ascites she is 2.5 years sober. She vapes and smokes a small amount of marijuana in the evening several times a week. She uses no other street drugs Trauma History: A friend from suicide 2 weeks ago. Another friend was murdered last year and [place] Coding Level of Care Code Psych Diag Eval w/Med ([id number]) Diagnoses TIEN (generalized anxiety disorder) F41.1 Insomnia, unspecified type G47.00 Insomnia type: unspecified
== END 2024-03-19 16:52 | disposition home or self-care (01) ==
LOC: HO.HOP 15:34
PROVIDERS: PCP Internal Medicine; Visit Provider Clinical Nurse Specialist Psychiatric/Mental Health
DX: F41.1 Generalized anxiety disorder (principal); G47.00 Insomnia, unspecified
CPT/HCPCS: 90792

== ENCOUNTER → 2024-03-19 15:34 | Outpatient (BNVA) | payer BC, SELFPAY | PROVIDERS: PCP Internal Medicine; Visit Provider Clinical Nurse Specialist Psychiatric/Mental Health | DX: F41.1 Generalized anxiety disorder (principal); G47.00 Insomnia, unspecified | CPT/HCPCS: 90792 ==

== ENCOUNTER 2024-04-30 17:50 | Outpatient (AMB) | payer BC, SELFPAY ==
--- NOTE | 2024-04-30 14:03 | MHC.OFFVISPS ---
Intake Intake Visit Reasons: f/u consultation Dredge Lever Operator Required: No Allergies No Known Allergies [No Known Allergies*] Allergy (Verified 02/05/24 08:39) Medication List - Last Reconciled 04/30/24 by Lizzie Coyle APRN amitriptyline 10 mg PO BEDTIME HPI- Psychiatric Chief Complaint: f/u consultation HPI Narrative: pt reports she tried the amitriptyline for 2 weeks and it didn't help her sleep so she stopped it; she thinks it might have helped with her anxiety. she would like to try a higher dose; she also tried a friend's hydroxyzine for sleep. she says it helped her sleep much better with no side effects.she denies any other changes; no ETOH use; she reports high stress with work right now due to holiday season. she denies SI or HI Past Psychiatric History: History of inpatient treatment for alcohol addiction IOP for alcohol Subjective Subjective Subjective Medication Compliance: Yes Side effects from medications: No Review of Systems Medical Review of Systems: unchanged Mental Status Exam Mental Status Exam Patient Appearance: Well Grooomed and Appropriate Patient Orientation: Person, Place, Time and Situation Level of Consciousness: Awake, Appropriate and Alert Patient Behavior: Appropriate and Cooperative Mood Description: Anxious Affect Description: Anxious Patient Cognition Impaired: No Ability to Follow Directions: Good Speech Pattern: Clear Memory Description: Intact Hallucinations: None Delusions: Not Present Thought Process: Intact and Distracted Thought Content: positive for Intact Judgement: Good Telehealth Telehealth Telehealth Platform: Other (please specify) ([email or web address]) Location of provider rendering services: practice address Location of patient: other (at work in the [facility] [employer]) Patient Identification confirmed using: Name, : Yes Telehealth method: video Patient verbally consented to treatment: Yes Patient verbally consented to billing insurance company: Yes Patient informed of any privacy concerns related to visit: Yes Minutes spent on Phone/Video with Pt.: 30 Assessment and Plan Assessment & Plan (1) Insomnia: Status: Acute Qualifiers: Insomnia type: unspecified Qualified Code(s): G47.00 - Insomnia, unspecified Code(s): G47.00 - Insomnia, unspecified (2) TIEN (generalized anxiety disorder): Status: Acute Code(s): F41.1 - Generalized anxiety disorder Plan start amitriptyline 25 mg at bedtime If not asleep in one hour okay to take hydroxyzine 25mg at bedtime prn insomnia Medications: New amitriptyline 25 mg PO BEDTIME 30 tabs 1RF hydroxyzine HCl 25 mg PO BEDTIME PRN 30 tabs 2RF sleep Counseling and coordination of Care Pt. Self Management counseling: Maintenance-social rhythm, Mod caffeine/ETOH intake, Sleep hygiene, Behavior activation and General coping skills Medication management counseling: Effectiveness, Side effects, Dosing range, Duration, Drug interaction and Adherence Diagnosis and Prognosis Counseling: Accuracy of diagnosis, Prognosis over time, Impact of diagnosis on life functions, Impact of family relationship, Problematic behaviors secondary to diagnosis and Adequacy of current interventions Details: I spent 35 minutes reviewing the record, seeing the patient and documenting in the medical record. Counseling provided to the patient/caregiver as outlined below. Addressed patient/caregiver concerns regarding current medication regime including effective adherence. Addressed patient/caregiver concerns regarding diagnosis and prognosis including accuracy of diagnosis, prognosis over time, impact of diagnosis. Addressed patient/caregiver concerns regarding impact of recent stressors. PFSH Medical History Hepatic steatosis Vitamin D deficiency Alcohol-induced polyneuropathy Alcoholic hepatitis with ascites Alcohol abuse Surgical History History of abdominal paracentesis History of ankle surgery Family History Paternal Grandmother Breast cancer Maternal Grandfather Colon cancer Father Family hx of prostate cancer Mother Hx of skin cancer, basal cell Social History Housing: Apartment Alcohol intake: current Alcohol intake frequency: does not drink Patient Tobacco Use Status: Former Tobacco user Tobacco use type: Cigarette e-Cigarette/Vaping Use: Currently Using Second Hand Smoke Exposure: No Substance Use Type: Marijuana service: No Current occupational status: employed Current occupational exposures/hazards: No Sexual orientation: Lesbian/Betancourt/Homosexual Gender identity: Female Cognitive needs: No Hearing needs: No Vision needs: Yes (glasses) Social History: Patient grew up in [place] with both parents and a sister 3 years older than her. 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 She has recently started a new relationship and is dating. Substance History: Significant alcohol use in the past with alcohol-induced polyneuropathy alcohol hepatitis with ascites she is 2.5 years sober. She vapes and smokes a small amount of marijuana in the evening several times a week. She uses no other street drugs Trauma History: A friend from suicide 2 weeks ago. Another friend was murdered last year and [place] Coding Level of Care Code Tele Est Pt Level 4 (49955) Diagnoses Insomnia, unspecified type G47.00 Insomnia type: unspecified TIEN (generalized anxiety disorder) F41.1
== END 2024-04-30 17:51 | disposition home or self-care (01) ==
LOC: HO.HOP 17:50
PROVIDERS: PCP Internal Medicine; Visit Provider Clinical Nurse Specialist Psychiatric/Mental Health
DX: F41.1 Generalized anxiety disorder (principal); G47.00 Insomnia, unspecified
CPT/HCPCS: 99214

== ENCOUNTER 2024-05-28 17:08 | Outpatient (AMB) | payer BC, SELFPAY ==
--- NOTE | 2024-05-28 16:56 | MHC.OFFVISPS ---
Intake Intake Visit Reasons: f/u consultation Allergies No Known Allergies [No Known Allergies*] Allergy (Verified 02/05/24 08:39) Medication List - Last Reconciled 05/28/24 by Lizzie Coyle APRN amitriptyline 25 mg PO BEDTIME hydroxyzine HCl 25 mg PO BEDTIME PRN HPI- Psychiatric Chief Complaint: f/u consultation HPI Narrative: pt reports sleeping a little better ; taking only the amitriptyline 25 mg at night; PHQ9=6 GAD7 = 1 . Pt reports increase fatigue during the day despite sleeping 1130 pm to 630 am. No ETOH use. no hallucinations. She is approximately 2-1/2 years sober from heavy alcohol use. past trial of Seroquel caused too much sedation. She also reports using trazodone Lexapro Prozac and Wellbutrin in the past none of which she found effective. Past Psychiatric History: History of inpatient treatment for alcohol addiction IOP for alcohol Subjective Subjective Subjective Medication Compliance: Yes Side effects from medications: No Review of Systems Medical Review of Systems: unchanged Mental Status Exam Mental Status Exam Patient Appearance: Well Grooomed and Appropriate Patient Orientation: Person, Place and Situation Level of Consciousness: Awake Patient Behavior: Appropriate and Cooperative Mood Description: Calm Affect Description: Calm Patient Cognition Impaired: No Ability to Follow Directions: Good Speech Pattern: Clear Memory Description: Intact Hallucinations: None Delusions: Not Present Thought Process: Intact Thought Content: positive for Intact Judgement: Fair Assessment and Plan Assessment & Plan (1) Insomnia: Status: Acute Qualifiers: Insomnia type: unspecified Qualified Code(s): G47.00 - Insomnia, unspecified Code(s): G47.00 - Insomnia, unspecified (2) TIEN (generalized anxiety disorder): Status: Acute Code(s): F41.1 - Generalized anxiety disorder Plan continue amitriptyline 25 mg daily add vitamin D 1000 IU add B complex vitmain daily Medications: Refilled amitriptyline 25 mg PO BEDTIME 30 tabs 1RF Counseling and coordination of Care Pt. Self Management counseling: Maintenance-social rhythm, Mod caffeine/ETOH intake, Nutrition education and improvement, Sleep hygiene, Behavior activation and General coping skills Medication management counseling: Effectiveness, Side effects, Dosing range, Duration, Drug interaction and Adherence Diagnosis and Prognosis Counseling: Accuracy of diagnosis, Prognosis over time, Impact of diagnosis on life functions, Impact of family relationship, Problematic behaviors secondary to diagnosis and Adequacy of current interventions Details: I spent 35 minutes reviewing the record, seeing the patient and documenting in the medical record. Counseling provided to the patient/caregiver as outlined below. Addressed patient/caregiver concerns regarding current medication regime including effective adherence. Addressed patient/caregiver concerns regarding diagnosis and prognosis including accuracy of diagnosis, prognosis over time, impact of diagnosis. Addressed patient/caregiver concerns regarding impact of recent stressors. PFSH Medical History Hepatic steatosis Vitamin D deficiency Alcohol-induced polyneuropathy Alcoholic hepatitis with ascites Alcohol abuse Surgical History History of abdominal paracentesis History of ankle surgery Family History Paternal Grandmother Breast cancer Maternal Grandfather Colon cancer Father Family hx of prostate cancer Mother Hx of skin cancer, basal cell Social History Housing: Apartment Alcohol intake: current Alcohol intake frequency: does not drink Patient Tobacco Use Status: Former Tobacco user Tobacco use type: Cigarette e-Cigarette/Vaping Use: Currently Using Second Hand Smoke Exposure: No Substance Use Type: Marijuana service: No Current occupational status: employed Current occupational exposures/hazards: No Sexual orientation: Lesbian/Betancourt/Homosexual Gender identity: Female Cognitive needs: No Hearing needs: No Vision needs: Yes (glasses) Social History: Patient grew up in [place] with both parents and a sister 3 years older than her. 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 in [facility] and studied sports management. She has recently started a new relationship and is dating. Substance History: Significant alcohol use in the past with alcohol-induced polyneuropathy alcohol hepatitis with ascites she is 2.5 years sober. She vapes and smokes a small amount of marijuana in the evening several times a week. She uses no other street drugs Trauma History: A friend from suicide 2023. Another friend was murdered last year and [place] Coding Level of Care Code Est Pt Level 4 (57577) Diagnoses Insomnia, unspecified type G47.00 Insomnia type: unspecified TIEN (generalized anxiety disorder) F41.1
== END 2024-05-28 17:09 | disposition home or self-care (01) ==
LOC: HO.HOP 17:08
PROVIDERS: PCP Internal Medicine; Visit Provider Clinical Nurse Specialist Psychiatric/Mental Health
DX: F41.1 Generalized anxiety disorder (principal); G47.00 Insomnia, unspecified
CPT/HCPCS: 99214

== ENCOUNTER → 2024-05-28 17:08 | Outpatient (BNVA) | payer BC, SELFPAY | PROVIDERS: PCP Internal Medicine; Visit Provider Clinical Nurse Specialist Psychiatric/Mental Health | DX: G47.00 Insomnia, unspecified (principal); F41.1 Generalized anxiety disorder ==

== ENCOUNTER 2024-05-29 15:02 | Outpatient (AMB) | payer BC, SELFPAY ==
--- NOTE | 2024-05-29 15:26 | MHC.PC.OV ---
Vital Signs 05/29/24 15:28 Height 5 ft 7 in Weight 129 lb 8 oz BMI 20.3 BP 110/62 Blood Pressure Location Lt brachial Position Sitting Pulse 96 Pulse Source Pulse Oximeter Pulse Oximetry (%) 100 Oxygen Delivery Method Room Air Intake Visit Reasons: 2 Week f/u Intake Note: Patient is here to follow up on Anxiety, medication review. Pt decline flu shot today. Anesthesiology Medical Doctor Required: No Ammonia Still Operator: Not Required per policy Accompanied by: Self / Same As Patient Allergies No Known Allergies [No Known Allergies*] Allergy (Verified 05/29/24 15:51) Medication List - Last Reconciled 05/29/24 by Deangelo Galindo MD amitriptyline 25 mg PO BEDTIME hydroxyzine HCl 25 mg PO BEDTIME PRN Tobacco use date assessed: 05/29/24 Dental Screening Dental Screen Date: 05/29/24 Did you have a dental visit in the last 12 months?: Yes Did you have a dental problem in the last 6 months where you did not have access to dental care?: No Was dental information given to patient?: Patient has dentist [facility] Medical History Hepatic steatosis Vitamin D deficiency Alcohol-induced polyneuropathy Alcoholic hepatitis with ascites Alcohol abuse Surgical History History of abdominal paracentesis History of ankle surgery Family History Paternal Grandmother Breast cancer Maternal Grandfather Colon cancer Father Family hx of prostate cancer Mother Hx of skin cancer, basal cell Social History Housing: Apartment Alcohol intake: current Alcohol intake frequency: does not drink Patient Tobacco Use Status: Former Tobacco user Tobacco use type: Cigarette e-Cigarette/Vaping Use: Currently Using Second Hand Smoke Exposure: No Substance Use Type: Marijuana service: No Current occupational status: employed Current occupational exposures/hazards: No Sexual orientation: Lesbian/Betancourt/Homosexual Gender identity: Female Cognitive needs: No Hearing needs: No Vision needs: Yes (glasses) Female Reproductive History Menstrual Age of Menarche: 13 Questionnaire PHQ-9 Over the last 2 weeks, how often have you been bothered by any of the following problems? 1. Little interest or pleasure in doing things: several days 2. Feeling down, depressed, or hopeless: several days 3. Trouble falling or staying asleep, or sleeping too much: more than half the days 4. Feeling tired or having little energy: more than half the days 5. Poor appetite or overeating: not at all 6. Feeling bad about yourself - or that you are a failure or have let yourself or your family down: not at all 7. Trouble concentrating on things, such as reading the newspaper or watching television: not at all 8. Moving or speaking so slowly that other people could have noticed. Or the opposite - being so fidgety or restless that you have been moving around a lot more than usual: not at all 9. Thoughts that you would be better off or of hurting yourself in some way: not at all Total score: 6 Depression Screening Interpretation: Positive Depression Screening Done: Yes Source: Developed by Drs. Vega Zarco, Stephanie Traore, Francisco Javier Harp and colleagues, with an educational lalo from [employer]. Thrive Questionnaire Date Thrive assessed: 05/29/24 I am a: Patient What is your living situation today?: I have a steady place to live Within the past 12 months, did the food you bought not last and you didn't have the money to get more?: Never true Within the past 12 months, did you worry whether your food would run out before you got money to buy more?: Never true Do you have trouble paying for medicines?: No Do you have trouble getting transportation to medical appointments?: No Do you have trouble paying your heating and electricity bill?: No Do you have trouble taking care of your child, family member or friend?: No Do you have trouble with day-to-day activities such as bathing, preparing meals, shopping, managing finances, etc.?: No Are you currently unemployed and looking for a job?: No Are you interested in more education?: No Please select the resources that you would like help with: None Currently or been in a relationship where the following occur: No concerns reported THRIVE Score: 0 AUDIT C Alcohol Use Questionnaire (AUDIT-C) 1. How often do you have a drink containing alcohol?: Never Total Score: 0 TIEN-7 AMB Questionnaire TIEN-7 Date TIEN - 7 assessed: 05/29/24 Feeling nervous, anxious, or on edge: 2 = More than half the days Not being able to stop or control worryin = Several days Worrying too much about different things: 1 = Several days Trouble relaxin = Several days Being so restless that it is hard to sit still: 0 = Not at all Becoming easily annoyed or irritable: 1 = Several days Feeling afraid as if something awful might happen: 0 = Not at all Total TIEN-7 score (0-4 normal; 5-9 mild; 10-14 moderate; 15-21 severe): 6 Source: Developed by Drs. Vega Zarco, Stephanie Traore, Francisco Javier Harp and colleagues, with an educational lalo from [employer]. Physical exam (Primary Care) Vital Signs: Last Vital Signs Pulse 96 05/29/24 15:28 BP 110/62 05/29/24 15:28 Pulse Ox 100 05/29/24 15:28 Oxygen Delivery Method Room Air 05/29/24 15:28 BMI result Body Mass Index 20.3 Tobacco/Smoking Status: Tobacco use Status Tobacco use date assessed 05/29/24 05/29/24 15:34 Patient Tobacco Use Status Former Tobacco user 05/29/24 15:27 Tobacco use type Cigarette 05/29/24 15:27 e-Cigarette/Vaping Use Currently Using 05/29/24 15:27 PHQ-9: PHQ-9 Score PHQ-9: Total score 6 05/29/24 15:34 Depression Screening Interpretation: Positive Thrive Assessment: Date of Thrive Assessment Date Thrive assessed 05/29/24 05/29/24 15:27 Currently or been in a relationship where the following occur: No concerns reported Coding Level of Care Code Est Pt Level 4 (68270) Complex EM visit Add On G2211 Diagnoses TIEN (generalized anxiety disorder) F41.1 Assessment & Plan Assessment & Plan (1) TIEN (generalized anxiety disorder): Code(s): F41.1 - Generalized anxiety disorder Category: Medical Plan: Continue current medications Plan History of Present Illness The patient is a 33-year-old female presenting with a routine follow-up for anxiety and insomnia. Initially evaluated in January for auditory and visual hallucinations, she was referred to the [facility] for psychiatric care. The psychiatrist, Dr. Lizzie Coyle, prescribed Amitriptyline. The patient reports improvement in sleep quality and overall betterment of her condition. However, she experiences persistent fatigue, attributing it to a need to catch up on rest. Her diagnosis includes anxiety and insomnia, and this visit is to monitor progress with no acute concerns. The patient mentions seeing her psychiatrist regularly and responds well to the current medication without significant complaints. She has been living with a roommate, maintaining a functional lifestyle with regular eating and exercise habits. 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 - Living Situation: Lives with a roommate. - Exercise: Maintains regular exercise routine. - Diet: Reports eating healthily. - Stress: Experiences stress due to work, especially during holidays. Review of Systems - Psychiatric: Reports persistent fatigue. - Sleep: Reports improved sleep quality but persistent tiredness. Physical Exam General: Cooperative and healthy appearing Nutritional Appearance: Well nourished Orientation/consciousness: Patient oriented x3 Limitations: No limitations Head: Normal to inspection General: Appearance normal, both eyes and all related structures Neck: Normal visual inspection Chest: Normal palpation of entire chest wall Respiratory: Normal respiratory effort Neurology: Patient oriented x3 Results Plan - Continue current medication regimen with Amitriptyline as prescribed by psychiatrist. - Recommend ongoing regular follow-up appointments with the psychiatrist. - Encourage continuation of healthy eating and regular exercise. - Monitor for any changes or worsening of symptoms. Patient was informed and verbally consented to the use of an ambient scribe for clinic note documentation during this visit. Discussion Notes We discussed the patient's ongoing treatment for anxiety and insomnia with Amitriptyline. She reported improved sleep but noted feeling persistently tired. I emphasized the importance of regular psychiatric follow-ups and confirmed her intention to continue with Dr. Lizzie Coyle. We reviewed her lifestyle, including diet and exercise, confirming adherence to healthy habits. No immediate changes to the treatment plan were necessary as the patient is managing well. We agreed on seeing each other as needed and maintaining communication regarding any changes in her condition. Patient Instructions - Continue taking Amitriptyline as prescribed. - Regularly attend follow-up appointments with your psychiatrist. - Maintain your healthy eating routine and regular exercise. - Monitor your symptoms and inform your healthcare providers if there are any changes. - Schedule an appointment if you experience any increase in symptoms or concerns before your next routine visit.
[2024-05-29 15:28] VITALS: BP 110/62; PULSE 96; O2SAT 100; BMI 20.3
== END 2024-05-29 15:51 | disposition home or self-care (01) ==
PROVIDERS: PCP Internal Medicine; Visit Provider Internal Medicine
DX: F41.1 Generalized anxiety disorder (principal)

== ENCOUNTER → 2024-05-29 15:02 | Outpatient (BNVA) | payer BC, SELFPAY | PROVIDERS: PCP Internal Medicine; Visit Provider Internal Medicine ==

== ENCOUNTER 2024-07-23 15:34 | Outpatient (AMB) | payer BC, SELFPAY ==
--- NOTE | 2024-07-23 15:41 | A.OFFPSYCH_ITS ---
Intake Intake Visit Reasons: f/u consultation Marzipan Molder Required: No Allergies No Known Allergies [No Known Allergies*] Allergy (Verified 05/29/24 15:51) Medication List - Last Reconciled 07/23/24 by Lizzie Coyle APRN amitriptyline 25 mg PO BEDTIME hydroxyzine HCl 25 mg PO BEDTIME PRN HPI- Psychiatric Chief Complaint: f/u consultation HPI Narrative: pt reports sensitivity to noise but no actual hearing of voices or conversing with voices. she does report visula changes at times such as looking in rear view mirror and for split second sees a trash can in middle of driveway but then looks again and realizes it is on the side of the driveway or road. Pt describes significant social anxiety her whole life. she reports especially at night her mind will review her day or some event and be very critical of herslf. no etoh x 3 years. sleep is variable ; the hydroxyzine has helped. no side effects from amitriptyline. no SI no HI , no sign no pranav. Past Psychiatric History: History of inpatient treatment for alcohol addiction IOP for alcohol Subjective Subjective Subjective Medication Compliance: Yes Side effects from medications: No Review of Systems Medical Review of Systems: unchanged Mental Status Exam Mental Status Exam Patient Appearance: Appropriate Patient Orientation: Person, Place, Time and Situation Level of Consciousness: Awake and Appropriate Patient Behavior: Appropriate Mood Description: Cheerful and Anxious Affect Description: Cheerful and Anxious Patient Cognition Impaired: No Ability to Follow Directions: Good Speech Pattern: Clear and Coherent Memory Description: Intact Hallucinations: None Delusions: Not Present Thought Process: Intact Thought Content: positive for Intact Judgement: Good Assessment and Plan Assessment & Plan (1) Insomnia: Status: Acute Qualifiers: Insomnia type: unspecified Qualified Code(s): G47.00 - Insomnia, unspecified Code(s): G47.00 - Insomnia, unspecified (2) TIEN (generalized anxiety disorder): Status: Acute Code(s): F41.1 - Generalized anxiety disorder (3) Social anxiety disorder: Status: Acute Code(s): F40.10 - Social phobia, unspecified Plan trial increase in amitriptyline to 50mg every evening take hydroxyzine 25 mg at bedtime if needed fro sleep return in 4-6 weeks Medications: Changed From amitriptyline 25 mg PO BEDTIME 30 tabs 1RF To amitriptyline 50 mg (2 x 25 mg) PO DAILY 60 tabs 1RF Refilled hydroxyzine HCl 25 mg PO BEDTIME PRN 30 tabs 2RF sleep Counseling and coordination of Care Pt. Self Management counseling: Maintenance-social rhythm, Mod caffeine/ETOH intake, Nutrition education and improvement, Sleep hygiene, General coping skills and Problem solving Medication management counseling: Effectiveness, Side effects, Dosing range, Duration, Drug interaction and Adherence Diagnosis and Prognosis Counseling: Accuracy of diagnosis, Prognosis over time, Impact of diagnosis on life functions, Impact of family relationship, Problematic behaviors secondary to diagnosis and Adequacy of current interventions Details: I spent 40 minutes reviewing the record, seeing the patient and documenting in the medical record. Counseling provided to the patient/caregiver as outlined below. Addressed patient/caregiver concerns regarding current medication regime including effective adherence. Addressed patient/caregiver concerns regarding diagnosis and prognosis including accuracy of diagnosis, prognosis over time, impact of diagnosis. Addressed patient/caregiver concerns regarding impact of recent stressors. PFSH Medical History Hepatic steatosis Vitamin D deficiency Alcohol-induced polyneuropathy Alcoholic hepatitis with ascites Alcohol abuse Surgical History History of abdominal paracentesis History of ankle surgery Family History Paternal Grandmother Breast cancer Maternal Grandfather Colon cancer Father Family hx of prostate cancer Mother Hx of skin cancer, basal cell Social History Housing: Apartment Alcohol intake: current Alcohol intake frequency: does not drink Patient Tobacco Use Status: Former Tobacco user Tobacco use type: Cigarette e-Cigarette/Vaping Use: Currently Using Second Hand Smoke Exposure: No Substance Use Type: Marijuana service: No Current occupational status: employed Current occupational exposures/hazards: No Sexual orientation: Lesbian/Betancourt/Homosexual Gender identity: Female Cognitive needs: No Hearing needs: No Vision needs: Yes (glasses) Social History: Patient grew up in [place] with both parents and a sister 3 years older than her. 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 [employer] [facility] and studied sports management. She has recently started a new relationship and is dating. Substance History: Significant alcohol use in the past with alcohol-induced polyneuropathy alcohol hepatitis with ascites she is 2.5 years sober. She vapes and smokes a small amount of marijuana in the evening several times a week. She uses no other street drugs Trauma History: A friend from suicide 2023. Another friend was murdered last year and [place] Coding Level of Care Code Est Pt Level 4 (31592) Diagnoses Insomnia, unspecified type G47.00 Insomnia type: unspecified TIEN (generalized anxiety disorder) F41.1 Social anxiety disorder F40.10
--- OUTSIDE RECORDS SUMMARY | 2024-07-23 19:36 | XMS_ITS | Clinical Summary ---
Author Organization [facility] Address [address] [place] [address] Phone Care Team Providers Care Staff Interpreter Name Role Phone Jenni Gordon MD Primary Care Provider Unava ilable Immunizations Immunization Administration Dates Next Due DTP 01/19/1994, 2,02/19/1992,12/19 DTaP 5 01/15/1997 HPV, Quadrivalent 11/14/2011,09/22/2009,12/04/19 09 Hep B, ped/adol 07/30/1997,03/10/1997,01/21/1997 Hib (PRP-T) 12/19/1992, 2,02/19/1992,12/19 IPV 01/19/1994,02/19/1992,1991 MMR 02/19/1996,12/19/1992 Meningococcal Conj (Menactra) MCV4P 11/30/2009 OPV 01/15/1997 Td (adult) (MBL), 2 Lf tetan us toxoid, PF, adsorbed 09/29/2003 Tdap 11/30/2009 Family History Relation Name Status Comments Father Alive Father: Alive a nd well Mother Alive Mother: Alive a nd well Sister Alive Sister: Alive a nd well Social History Tobacco Use Types Packs/Day Years Used Date Smoking Tobacco: Some Days Comments:Current some day sm oker Comments Unknown Sex and Gender Information Value Date Recorded Sex Assigned at Not on file Legal Sex Female 4:40 PM EDT Gender Identity Not on file Sexual Orientation Not on file Last Filed Vital Signs Vital Sign Reading Time Taken Comments Blood Pressure 90/72 12/22/2011 12:00 AM EDT Pulse - - Temperature 36.3 ??C (97.4 ??F) 09/22/2009 12:00 AM E DT Respiratory Rate - - Oxygen Saturation - - Inhaled Oxygen Concentration - - Weight 56.7 kg (125 lb) 12/22/2011 12:00 AM EDT Height 168.9 cm (5' 6.5 ) 12/22/2011 12:00 AM ED T Body Mass Index 19.87 12/22/2011 12:00 AM EDT Plan of Treatment Health Maintenance Due Date Last Done Comments Varicella Vaccines (1 of 2 - 13+ 2-dose series) 09/03/2004 Consider Men B Vaccine (1 of 2 - Bexsero 2-dose series) 2007 DTaP,Tdap,and Td Vaccines (7 - Td or Tdap) 12/01/2019 11/30/2009, 09/29/2003, 01/15/1997, Additional history exists Influenza Vaccines (#1) 2023 COVID-19 Vaccine ( season) 2024 HIB Vaccines Completed 12/19/1992, 03/24, 02/19/1992, Additional history exists MMR Vaccines Completed 02/19/1996, 12/19/1992 IPV Vaccines Completed 01/15/1997, 12/22, 02/19/1992, Additional history exists Hepatitis B Vaccines Completed 07/30/1997, 03/10/1997, 01/21/1997 Meningococcal Vaccine Completed 11/30/2009 HPV Vaccines Completed 11/14/2011, 08/2009, 12/03/2008 Hepatitis A Vaccines Aged Out No long er eligible based on patient's age to complete this topic Men B Vaccine Aged Out No longer elig ible based on patient's age to complete this topic Pneumococcal Vaccine Aged Out No long er eligible based on patient's age to complete this topic Procedures * Due to [place] law, this organization might not be sharing sensitive test results. Procedure Name Priority Date/Time Associated Diagnosis Comments CHLAMYDIA AND GONORRHEA, AMPLIFIED Routine 11/15/2011 12:50 PM EDT from Last 3 Months or Most Recently Relevant to Health Maintenance Results * Due to [place] law, this organization might not be sharing sensitive test results. * Chlamydia and Gonorrhoea, Amplified (11/15/2011 12:50 PM EDT) URINE GC AMP PROBE NEGATIVE [facility] Comment: NO NEISSERIA GONORRHOEAE RNA DETECTED IN THIS PATIENT'S SAMPLE. ? (REFERENCE RANGE/NORMAL VALUE: NOT DETECTED) ? NOTE: THIS TEST USES COMPLAINT INSPECTOR MEDIATED AMPLIFICATION METHOD TO DETECT rRNA FROM C.TRACHOMATIS AND N.GONORRHOEAE. A NEGATIVE RESULT DOES NOT PRECLUDE INFECTION WITH C.TRACHOMATIS OR N.GONORRHOEAE BECAUSE RESULTS ARE DEPENDENT ON ADEQUATE SPECIMEN COLLECTION, ABSENCE OF INHIBITORS, AND SUFFICIENT rRNA TO BE DETECTED. THE APTIMA COMBO2 ASSAY IS NOT INTENDED FOR THE EVALUATION OF SUSPECTED SEXUAL ABUSE OR FOR OTHER MEDICO LEGAL INDICATIONS. IS TRUE FOR ALL NON CULTURE METHODS, A POSITIVE SPECIMEN OBTAINED FROM A PATIENT AFTER THERAPEUTIC TREATMENT CANNOT BE INTERPRETED INDICATING THE PRESENCE OF VIABLE C.TRACHOMATIS OR N.GONORRHOEAE. THERAPEUTIC FAILURE OR SUCCESS CANNOT BE DETERMINED WITH THE APTIMA COMBO2 ASSAY SINCE NUCLEIC ACID MAY PERSIST FOLLOWING APPROPRIATE ANTIMICROBIAL THERAPY. A NEGATIVE URINE RESULT FOR A PATIENT WHO IS CLINICALLY SUSPECTED OF HAVING A CHLAMYDIAL OR GONOCOCCAL INFECTION DOES NOT RULE OUT THE PRESENCE OF C.TRACHOMATIS OR N.GONORRHOEAE IN THE UROGENITAL TRACT. TESTING OF AN ENDOCERVICAL(FEMALE) OR URETHRAL(MALE) SPECIMEN IS RECOMMENDED IF THERE IS HIGH CLINICAL SUSPICION OF INFECTION. PRESERVCYT LIQUID PAP AND URINE SAMPLING ARE NOT DESIGNED TO REPLACE CERVICAL EXAMS AND ENDOCERVICAL SAMPLES FOR DIAGNOSIS OF FEMALE UROGENITAL INFECTIONS. PATIENTS MAY HAVE CERVICITIS, URETHRITIS, URINARY TRACT INFECTIONS, OR VAGINAL INFECTIONS DUE TO OTHER CAUSES OR CONCURRENT INFECTIONS WITH OTHER AGENTS. URINE CHLAMYDIA AMP PROBE NEGATIVE [facility] Comment: NO CHLAMYDIA TRACHOMATIS RNA DETECTED IN THIS PATIENT'S SAMPLE. ? (REFERENCE RANGE/NORMAL VALUE: NOT DETECTED) 11/15/2011 12:5 0 PM EDT Narrative [facility] - 11/15/2011 12:50 PM EDT URINE CHLAMYDIA GC AMP PROBE us Jenni Gordon MD LAB MICROBIOLOGY - GENERAL O RDERABLES Final Result [facility] [address] [place] [address], from Last 3 Months or Most Recently Relevant to Health Maintenance Care Teams Staff Interpreter Relationship Specialty Start Date End Date Jenni Gordon MD PCP - General 12/30/16
--- OUTSIDE RECORDS SUMMARY | 2024-07-23 19:36 | XMS_ITS | Encounter Summary ---
Author Organization [facility] Address [address] [place] [address] Phone Care Team Providers Care Art Model Name Role Phone Jenni Gordon MD Primary Care Provider Unava ilable Encounter Details Date Type Department Care Team (Late st Contact Info) Description 12/23/2011 Documentation EM Family Medicine [address] [place] [address] Family Medicine, Physician [address], [place] [id number] Social History Tobacco Use Types Packs/Day Years Used Date Smoking Tobacco: Never Assessed Comments Unknown Sex and Gender Information Value Date Recorded Sex Assigned at Not on file Legal Sex Female 4:40 PM EDT Gender Identity Not on file Sexual Orientation Not on file documented as of this encounter Plan of Treatment Not on file documented as of this encounter Visit Diagnoses Not on filedocumented in this encounter Care Teams Art Model Relationship Specialty Start Date End Date Jenni Gordon MD PCP - General 12/30/16 documented as of this encounter
--- OUTSIDE RECORDS SUMMARY | 2024-07-23 19:36 | XMS_ITS | Encounter Summary ---
Author Organization [facility] Address [address] [place] [address] Phone Care Team Providers Care Shadowgraph Operator Name Role Phone Jenni Gordon MD Primary Care Provider Unava ilable Encounter Details Date Type Department Care Team (Late st Contact Info) Description 01/05/2017 Conversion Encounter [facility] - [address] [address] Social History Tobacco Use Types Packs/Day Years [...] on filedocumented in this encounter Care Teams Shadowgraph Operator Relationship Specialty Start Date End Date Jenni Gordon MD PCP - General 12/30/16 documented as of this encounter
--- OUTSIDE RECORDS SUMMARY | 2024-07-23 19:36 | XMS_ITS | Encounter Summary ---
Author Organization [facility] Address [address] [place] [address] Phone Care Team Providers Care Sander Setter Name Role Phone Jenni Gordon MD Primary Care Provider Unava ilable Encounter Details Date Type Department Care Team (Late st Contact Info) Description 12/23/2011 Documentation EM Family Medicine [address] [place] [address] Family Medicine, Physician [address] [place], [place] [id number] Social History Tobacco Use Types Packs/Day Years [...] on filedocumented in this encounter Care Teams Sander Setter Relationship Specialty Start Date End Date Jenni Gordon MD PCP - General 12/30/16 documented as of this encounter
== END 2024-07-23 17:01 | disposition home or self-care (01) ==
LOC: HO.HOP 15:34
PROVIDERS: PCP Internal Medicine; Visit Provider Clinical Nurse Specialist Psychiatric/Mental Health
DX: F41.1 Generalized anxiety disorder (principal); F40.10 Social phobia, unspecified; G47.00 Insomnia, unspecified
CPT/HCPCS: 99214

== ENCOUNTER → 2024-07-23 15:34 | Outpatient (BNVA) | payer BC, SELFPAY | PROVIDERS: PCP Internal Medicine; Visit Provider Clinical Nurse Specialist Psychiatric/Mental Health | DX: G47.00 Insomnia, unspecified (principal); F41.1 Generalized anxiety disorder ==

== ENCOUNTER 2024-09-10 15:52 | Outpatient (AMB) | payer BC, SELFPAY ==
--- NOTE | 2024-09-10 16:11 | MHC.OFFVISPS ---
Intake Intake Visit Reasons: f/u consultation Assistant Controller Required: No Allergies No Known Allergies [No Known Allergies*] Allergy (Verified 05/29/24 15:51) Medication List - Last Reconciled 09/10/24 by Lizzie Coyle APRN amitriptyline 50 mg (2 x 25 mg) PO DAILY hydroxyzine HCl 25 mg PO BEDTIME PRN HPI- Psychiatric Chief Complaint: f/u consultation HPI Narrative: pt is here for follow up re: social anxiety, insomnia and intermittent perceptual changes such as hearing mumbling or static when there are other noises nearby and pt does not always know if what she is hearing is accurate. she also has seen items incorrectly at times such as seeing a trash can in the middle of the road behind her and then looking again and seeing it on the side of the road. PHQ9=6 and GAD7=8. Pt continues with sobriety x 2.5+ yrs. No SI or HI. Pt reports improvement; doesn't consistently take amitriptyline; discussed that she would likely feel better if she took it every day. Past Psychiatric History: History of inpatient treatment for alcohol addiction IOP for alcohol - sober 2.5 + yrs Subjective Subjective Subjective Medication Compliance: Yes Side effects from medications: No Review of Systems Medical Review of Systems: unchanged Mental Status Exam Mental Status Exam Patient Appearance: Well Grooomed and Appropriate Patient Orientation: Person, Place, Time and Situation Level of Consciousness: Awake and Appropriate Patient Behavior: Appropriate and Cooperative Mood Description: Anxious Affect Description: Anxious Patient Cognition Impaired: No Ability to Follow Directions: Good Speech Pattern: Clear Memory Description: Intact Hallucinations: None Delusions: Not Present Thought Process: Intact and Goal Oriented Thought Content: positive for Intact and positive for Goal Oriented Judgement: Good Assessment and Plan Assessment & Plan (1) Vitamin D deficiency: Status: Acute Code(s): E55.9 - Vitamin D deficiency, unspecified (2) Auditory perceptual disorder: Status: Acute Qualifiers: Laterality: bilateral Qualified Code(s): H93.293 - Other abnormal auditory perceptions, bilateral Code(s): H93.299 - Other abnormal auditory perceptions, unspecified ear (3) Social anxiety disorder: Status: Acute Code(s): F40.10 - Social phobia, unspecified (4) Insomnia: Status: Acute Qualifiers: Insomnia type: unspecified Qualified Code(s): G47.00 - Insomnia, unspecified Code(s): G47.00 - Insomnia, unspecified Plan continue meds as per below labs ordered consider referral for hearing test return in 4 weeks Medications: Refilled amitriptyline 50 mg (2 x 25 mg) PO DAILY 60 tabs 1RF hydroxyzine HCl 25 mg PO BEDTIME PRN 30 tabs 2RF sleep Orders: Orders Vitamin B12 and Folate 09/10/24 F40.10 - Social phobia, unspecified, H93.299 - Other abnormal auditory perceptions, unspecified ear Vitamin D 25-OH Total 09/10/24 E55.9 - Vitamin D deficiency, unspecified Vitamin B1 09/10/24 F40.10 - Social phobia, unspecified, H93.299 - Other abnormal auditory perceptions, unspecified ear TSH reflex Free T4 09/10/24 F40.10 - Social phobia, unspecified, H93.299 - Other abnormal auditory perceptions, unspecified ear Comprehensive Met. Panel 09/10/24 E55.9 - Vitamin D deficiency, unspecified, H93.299 - Other abnormal auditory perceptions, unspecified ear Complete Blood Count Auto Diff 09/10/24 F40.10 - Social phobia, unspecified, H93.299 - Other abnormal auditory perceptions, unspecified ear Counseling and coordination of Care Pt. Self Management counseling: Exercise, Maintenance-social rhythm, Mod caffeine/ETOH intake, Nutrition education and improvement, Sleep hygiene, Behavior activation and Problem solving Medication management counseling: Effectiveness, Side effects, Dosing range, Duration, Drug interaction and Adherence Diagnosis and Prognosis Counseling: Accuracy of diagnosis, Prognosis over time and Adequacy of current interventions Details: I spent 40 minutes reviewing the record, seeing the patient and documenting in the medical record. Counseling provided to the patient/caregiver as outlined below. Addressed patient/caregiver concerns regarding current medication regime including effective adherence. Addressed patient/caregiver concerns regarding diagnosis and prognosis including accuracy of diagnosis, prognosis over time, impact of diagnosis. Addressed patient/caregiver concerns regarding impact of recent stressors. PFSH Medical History Vitamin D deficiency Hepatic steatosis Alcohol-induced polyneuropathy Alcoholic hepatitis with ascites Alcohol abuse Surgical History History of abdominal paracentesis History of ankle surgery Family History Paternal Grandmother Breast cancer Maternal Grandfather Colon cancer Father Family hx of prostate cancer Mother Hx of skin cancer, basal cell Social History Housing: Apartment Alcohol intake: current Alcohol intake frequency: does not drink Patient Tobacco Use Status: Former Tobacco user Tobacco use type: Cigarette e-Cigarette/Vaping Use: Currently Using Second Hand Smoke Exposure: No Substance Use Type: Marijuana service: No Current occupational status: employed Current occupational exposures/hazards: No Sexual orientation: Lesbian/Betancourt/Homosexual Gender identity: Female Cognitive needs: No Hearing needs: No Vision needs: Yes (glasses) Social History: Patient grew up in [place] with both parents and a sister 3 years older than her. 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 She has recently started a new relationship and is dating. Substance History: Significant alcohol use in the past with alcohol-induced polyneuropathy alcohol hepatitis with ascites she is 2.5 years sober. She vapes and smokes a small amount of marijuana in the evening several times a week. She uses no other street drugs Trauma History: A friend from suicide 2023. Another friend was murdered last year and [place] Coding Level of Care Code Est Pt Level 4 (48620) Diagnoses Vitamin D deficiency E55.9 Auditory perceptual disorder involving both ears H93.293 Laterality: bilateral Social anxiety disorder F40.10 Insomnia, unspecified type G47.00 Insomnia type: unspecified
--- OUTSIDE RECORDS SUMMARY | 2024-09-10 18:35 | XMS_ITS | Encounter Summary ---
Author Organization [facility] Address [address] [place] [address] Phone Care Team Providers Care Glass Mold Repairer Name Role Phone Jenni Gordon MD Primary Care Provider Unava ilable Encounter Details Date Type Department Care Team (Late st Contact Info) Description 01/05/2017 Conversion Encounter [facility] - [address] [address] Social History Tobacco Use Types Packs/Day Years [...] on filedocumented in this encounter Care Teams Glass Mold Repairer Relationship Specialty Start Date End Date Jenni Gordon MD PCP - General 12/30/16 documented as of this encounter
--- OUTSIDE RECORDS SUMMARY | 2024-09-10 18:35 | XMS_ITS | Encounter Summary ---
Author Organization [facility] Address [address] [place] [address] Phone Care Team Providers Care Senior Benefits Analyst Name Role Phone Jenni Gordon MD Primary Care Provider Unava ilable Encounter Details Date Type Department Care Team (Late st Contact Info) Description 12/23/2011 Documentation EM Family Medicine [address] [place] [address] Family Medicine, Physician [address] [place], [place] [id number] Social History Tobacco Use Types Packs/Day Years [...] on filedocumented in this encounter Care Teams Senior Benefits Analyst Relationship Specialty Start Date End Date Jenni Gordon MD PCP - General 12/30/16 documented as of this encounter
--- OUTSIDE RECORDS SUMMARY | 2024-09-10 18:35 | XMS_ITS | Encounter Summary ---
Author Organization [facility] Address [address] [place] [address] Phone Care Team Providers Care Side Door Worker Name Role Phone Jenni Gordon MD Primary Care Provider Unava ilable Encounter Details Date Type Department Care Team (Late st Contact Info) Description 12/23/2011 Documentation EM Family Medicine [address] [place] [address] Family Medicine, Physician [address] [place], [place] [address] Social History Tobacco Use Types Packs/Day Years [...] on filedocumented in this encounter Care Teams Side Door Worker Relationship Specialty Start Date End Date Jenni Gordon MD PCP - General 12/30/16 documented as of this encounter
--- OUTSIDE RECORDS SUMMARY | 2024-09-10 18:35 | XMS_ITS | Clinical Summary ---
Author Organization [facility] Address [address] [place] [address] Phone Care Team Providers Care Clay Shop Supervisor Name Role Phone Jenni Gordon MD Primary [...] of 2 - 13+ 2-dose series) 09/03/2004 DTaP,Tdap,and Td Vaccines (7 - Td or [...] complete this topic Procedures * Due to [place] [employer] law, this organization might not be sharing sensitive test results. Procedure Name Priority Date/Time Associated Diagnosis Comments CHLAMYDIA AND GONORRHEA, AMPLIFIED Routine 11/15/2011 12:50 PM EDT from Last 3 Months or Most Recently Relevant to Health Maintenance Results * Due to [place] [employer] law, this organization might not be sharing sensitive test results. * Chlamydia and Gonorrhoea, Amplified (11/15/2011 12:50 PM EDT) Pathologist [facility] URINE GC AMP PROBE NEGATIVE [facility] Comment: NO NEISSERIA GONORRHOEAE RNA DETECTED IN THIS PATIENT'S SAMPLE. ? (REFERENCE RANGE/NORMAL VALUE: NOT DETECTED) ? NOTE: THIS TEST USES BIOMETRICS SPECIALIST MEDIATED AMPLIFICATION METHOD TO DETECT rRNA FROM [...] OTHER AGENTS. URINE CHLAMYDIA AMP PROBE NEGATIVE [facility] Comment: NO CHLAMYDIA TRACHOMATIS RNA DETECTED IN THIS PATIENT'S SAMPLE. ? (REFERENCE RANGE/NORMAL VALUE: NOT DETECTED) 11/15/2011 12:5 0 PM EDT Narrative [facility] - 11/15/2011 12:50 PM EDT URINE CHLAMYDIA GC AMP PROBE us Jenni Gordon MD LAB MICROBIOLOGY - GENERAL O RDERABLES Final Result [facility] [address] [place] [address], from Last 3 Months or Most Recently Relevant to Health Maintenance Care Teams Clay Shop Supervisor Relationship Specialty Start Date End Date Jenni Gordon MD PCP - General 12/30/16
== END 2024-09-10 16:25 | disposition home or self-care (01) ==
LOC: HO.HOP 15:52
PROVIDERS: PCP Internal Medicine; Visit Provider Clinical Nurse Specialist Psychiatric/Mental Health
DX: F40.10 Social phobia, unspecified (principal); G47.00 Insomnia, unspecified; H93.293 Other abnormal auditory perceptions, bilateral; E55.9 Vitamin D deficiency, unspecified
CPT/HCPCS: 99214

== ENCOUNTER 2024-10-29 16:25 | Outpatient (AMB) | payer BC, SELFPAY ==
--- NOTE | 2024-10-29 16:06 | A.OFFPSYCH_ITS ---
Intake Intake Visit Reasons: follow up Allergies No Known Allergies [No Known Allergies*] Allergy (Verified 05/29/24 15:51) Medication List - Last Reconciled 10/29/24 by Lizzie Coyle APRN amitriptyline 50 mg (2 x 25 mg) PO DAILY hydroxyzine HCl 25 mg PO BEDTIME PRN HPI- Psychiatric Chief Complaint: follow up HPI Narrative: pt reports taking amitriptuyline more concistently and sleeping better; she had one episode of auditory anomaly while at a play with her mother and friend. There was singing during the play and patient thought she heard drumming or loud jet but it didn't seem to fir context so she thinks it was an inaccurate perception. pt did not get blood work done yet. She will get done this week. She reports she has been busier than usual with social outings and this has made her feel jumpier. She also moved home to live with parents and save money for awhile. pt denies SI or HI. Past Psychiatric History: History of inpatient treatment for alcohol addiction IOP for alcohol - sober 3+ yrs Subjective Subjective Subjective Medication Compliance: Yes Side effects from medications: No Review of Systems Medical Review of Systems: unchanged Mental Status Exam Mental Status Exam Patient Appearance: Well Grooomed and Appropriate Patient Orientation: Person, Place, Time and Situation Level of Consciousness: Awake and Appropriate Patient Behavior: Appropriate Mood Description: Anxious Affect Description: Anxious Patient Cognition Impaired: No Ability to Follow Directions: Good Speech Pattern: Clear and Appropriate Memory Description: Intact Hallucinations: Auditory (question of ) Delusions: Not Present Thought Process: Intact and Goal Oriented Thought Content: positive for Intact and positive for Goal Oriented Judgement: Good Telehealth Telehealth Telehealth Platform: Other (please specify) ([email or web address]) Location of provider rendering services: practice address Location of patient: other (at work in the [employer] [facility] [employer]) Patient Identification confirmed using: Name, : Yes Telehealth method: video Patient verbally consented to treatment: Yes Patient verbally consented to billing insurance company: Yes Patient informed of any privacy concerns related to visit: Yes Minutes spent on Phone/Video with Pt.: 25 Assessment and Plan Assessment & Plan (1) Auditory perceptual disorder: Status: Acute Qualifiers: Laterality: bilateral Qualified Code(s): H93.293 - Other abnormal auditory perceptions, bilateral Code(s): H93.299 - Other abnormal auditory perceptions, unspecified ear (2) Social anxiety disorder: Status: Acute Code(s): F40.10 - Social phobia, unspecified (3) Insomnia: Status: Acute Qualifiers: Insomnia type: unspecified Qualified Code(s): G47.00 - Insomnia, unspe cified Code(s): G47.00 - Insomnia, unspecified Plan continue amitriptyline and hydroxyzine for now Medications: New lamotrigine (Lamictal) 25 mg orally take one tablet daily x 10 days then increase to 2 tablets daily; 60 tabs 0RF Orders: Referrals Audiology Referral H93.293 - Other abnormal auditory perceptions, bilateral Counseling and coordination of Care Pt. Self Management counseling: Maintenance-social rhythm, Mod caffeine/ETOH intake, Nutrition education and improvement, Sleep hygiene and General coping skills Medication management counseling: Effectiveness, Side effects, Dosing range, Duration and Drug interaction Diagnosis and Prognosis Counseling: Accuracy of diagnosis, Prognosis over time, Impact of diagnosis on life functions, Impact of family relationship, Problematic behaviors secondary to diagnosis and Adequacy of current interventions Details: I spent 35 minutes reviewing the record, seeing the patient and documenting in the medical record. Counseling provided to the patient/caregiver as outlined below. Addressed patient/caregiver concerns regarding current medication regime including effective adherence. Addressed patient/caregiver concerns regarding diagnosis and prognosis including accuracy of diagnosis, prognosis over time, impact of diagnosis. Addressed patient/caregiver concerns regarding impact of recent stressors. PFSH Medical History Vitamin D deficiency Hepatic steatosis Alcohol-induced polyneuropathy Alcoholic hepatitis with ascites Alcohol abuse Surgical History History of abdominal paracentesis History of ankle surgery Family History Paternal Grandmother Breast cancer Maternal Grandfather Colon cancer Father Family hx of prostate cancer Mother Hx of skin cancer, basal cell Social History Housing: Apartment Alcohol intake: current Alcohol intake frequency: does not drink Patient Tobacco Use Status: Former Tobacco user Tobacco use type: Cigarette e-Cigarette/Vaping Use: Currently Using Second Hand Smoke Exposure: No Substance Use Type: Marijuana service: No Current occupational status: employed Current occupational exposures/hazards: No Sexual orientation: Lesbian/Betancourt/Homosexual Gender identity: Female Cognitive needs: No Hearing needs: No Vision needs: Yes (glasses) Social History: Patient grew up in [place] with both parents and a sister 3 years older than her. 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 She has recently started a new relationship and is dating. Substance History: Significant alcohol use in the past with alcohol-induced polyneuropathy alcohol hepatitis with ascites she is 2.5 years sober. She vapes and smokes a small amount of marijuana in the evening several times a week. She uses no other street drugs Trauma History: A friend from suicide 2023. Another friend was murdered last year and [place] Coding Level of Care Code Tele Est Pt Level 4 (59216) Diagnoses Auditory perceptual disorder involving both ears H93.293 Laterality: bilateral Social anxiety disorder F40.10 Insomnia, unspecified type G47.00 Insomnia type: unspecified
--- OUTSIDE RECORDS SUMMARY | 2024-10-29 19:01 | XMS_ITS | Encounter Summary ---
Author Organization [facility] Address [address] [place] [address] Phone Care Team Providers Care Booster Operator Name Role Phone Jenni Gordon MD Primary Care Provider Unava ilable Encounter Details Date Type Department Care Team (Late st Contact Info) Description 12/23/2011 Documentation EM Family Medicine [address] [place] [address] Family Medicine, Physician [address], [place] [address] Social History Tobacco Use Types Packs/Day Years [...] on filedocumented in this encounter Care Teams Booster Operator Relationship Specialty Start Date End Date Jenni Gordon MD PCP - General 12/30/16 documented as of this encounter
== END 2024-10-29 16:26 | disposition home or self-care (01) ==
LOC: HO.HOP 16:25
PROVIDERS: PCP Internal Medicine; Visit Provider Clinical Nurse Specialist Psychiatric/Mental Health
DX: F40.10 Social phobia, unspecified (principal); H93.293 Other abnormal auditory perceptions, bilateral; G47.00 Insomnia, unspecified
CPT/HCPCS: 99214

== ENCOUNTER → 2024-10-29 16:25 | Outpatient (BNVA) | payer BC, SELFPAY | PROVIDERS: PCP Internal Medicine; Visit Provider Clinical Nurse Specialist Psychiatric/Mental Health ==

== ENCOUNTER 2024-11-13 14:49 | Outpatient (REF) | payer BC, SELFPAY ==
[2024-11-13 15:01] LABS: MANUAL DIFF FLAG NO
[2024-11-13 16:06] LABS: Eosinophils Absolute Auto 0.2 X10*3/uL (0.0-0.4); Eosinophils Percent Auto 2.6 % (0-4); Hemoglobin 13.8 g/dl (12.0-16.0); Imm Gran Abs Auto 0.01 X10*3/uL (0.00-0.03); Imm Gran Pct Auto 0.2 % (0.0-0.4); Lymphocytes Absolute Auto 2.2 X10*3/uL (1.2-4.9); Lymphocytes Percent Auto 35.4 % (20-40); Mean Corpuscular HGB Conc 33.7 g/dl (31.0-35.0); Mean Corpuscular Volume 86.1 fL (80.0-98.0); Mean Platelet Volume 11.5 fL (9.4-12.3); Monocytes Absolute Auto 0.5 X10*3/uL (0.1-1.2); Monocytes Percent Auto 8.4 % (2-11); Neutrophils Absolute Auto 3.3 x10*3/uL (2.0-8.3); Neutrophils Percent Auto 53.4 % (45-73); Platelet Count 228 X10*3/uL (160-400); Red Blood Count 4.76 X10*6/uL (4.20-5.50); Red Cell Distribution Width 12.9 % (11.0-16.0); White Blood Count 6.2 X10*3/uL (4.8-10.8)
[2024-11-13 16:32] LABS: Alanine Aminotransferase 13 U/L (0-31); Albumin Level 4.7 g/dL (3.5-5.0); Alkaline Phosphatase 48 U/L (39-117); Anion Gap 11 (12-20); Aspartate Amino Transferase 17 U/L (5-31); Bilirubin Total 0.4 mg/dL (0.0-1.0); Blood Urea Nitrogen 10 mg/dL (9-16); Calcium 9.5 mg/dL (8.4-10.2); Carbon Dioxide 24 mmol/L (22-29); Chloride 106 mmol/L (96-108); Estimated Glomerular Filt Rate > 60; Glucose Random 97 mg/dL (60-115); Sodium 137 mmol/L (135-145); Total Protein 7.1 g/dL (6.5-8.0)
[2024-11-13 16:42] LABS: TSH reflex Free T4 1.71 uIU/mL (0.32-4.0); Vitamin D 25-OH Total 34.2 ng/mL (>30)
[2024-11-13 16:57] LABS: Folate 7.5 ng/mL (> or = 4.0); Vitamin B12 508 pg/mL (200-900)
--- OUTSIDE RECORDS SUMMARY | 2024-11-13 17:43 | XMS_ITS | Encounter Summary ---
Author Organization [facility] Address [address] [place] [address] Phone Care Team Providers Care Content Publisher Name Role Phone Jenni Gordon MD Primary Care Provider Unava ilable Encounter Details Date Type Department Care Team (Late st Contact Info) Description 12/23/2011 Documentation EM Family Medicine [address] [place] [address] Family Medicine, Physician [address] [place], [place] [address] Social History Tobacco Use Types Packs/Day Years [...] on filedocumented in this encounter Care Teams Content Publisher Relationship Specialty Start Date End Date Jenni Gordon MD PCP - General 12/30/16 documented as of this encounter
[2024-11-18 03:11] LABS: Vitamin B1 10 nmol/L (8-30)
== END 2024-11-13 14:50 | disposition home or self-care (01) ==
LOC: HO.LAB 14:49
PROVIDERS: PCP Internal Medicine; Visit Provider Clinical Nurse Specialist Psychiatric/Mental Health
DX: H93.299 Other abnormal auditory perceptions, unspecified ear (principal); F40.10 Social phobia, unspecified; E55.9 Vitamin D deficiency, unspecified
CPT/HCPCS: 36415; 80053; 82306; 82607; 82746; 84425; 84443; 85025

== ENCOUNTER 2024-11-26 15:54 | Outpatient (AMB) | payer BC, SELFPAY ==
--- OUTSIDE RECORDS SUMMARY | 2024-11-26 16:08 | XMS_ITS | Encounter Summary ---
Author Organization [facility] Address [address] [place] [address] Phone Care Team Providers Care Pipe Finishing Supervisor Name Role Phone Jenni Gordon MD Primary Care Provider Unava ilable Encounter Details Date Type Department Care Team (Late st Contact Info) Description 12/23/2011 Documentation EM Family Medicine [address] [place] [address] Family Medicine, Physician [address] [place], [place] [phone] Social History Tobacco Use Types Packs/Day Years [...] on filedocumented in this encounter Care Teams Pipe Finishing Supervisor Relationship Specialty Start Date End Date Jenni Gordon MD PCP - General 12/30/16 documented as of this encounter
--- NOTE | 2024-11-26 16:11 | MHC.OFFVISPS ---
Intake Intake Visit Reasons: follow up Communication Arts Lecturer Required: No Allergies No Known Allergies (No Known Allergies*) Allergy (Verified 05/29/24 15:51) Medication List - Last Reconciled 11/26/24 by Lizzie Coyle APRN amitriptyline 50 mg (2 x 25 mg) PO DAILY hydroxyzine HCl 25 mg PO BEDTIME PRN lamotrigine (Lamictal) 25 mg orally take one tablet daily x 10 days then increase to 2 tablets daily; HPI- Psychiatric Chief Complaint: follow up HPI Narrative: pt reports taking meds more consistently. Has missed lamictal a few times but not more than one day in a row. Labs reviewed - essentially normal; Speech and Hearing consult pending. still very anxious. pt denies SI or HI. Past Psychiatric History: History of inpatient treatment for alcohol addiction IOP for alcohol - sober 3+ yrs Subjective Subjective Subjective Medication Compliance: Yes Side effects from medications: No Review of Systems Medical Review of Systems: unchanged Mental Status Exam Mental Status Exam Patient Appearance: Well Grooomed and Appropriate Patient Orientation: Person, Place, Time and Situation Level of Consciousness: Awake and Appropriate Patient Behavior: Appropriate Mood Description: Anxious Affect Description: Anxious Patient Cognition Impaired: No Ability to Follow Directions: Good Speech Pattern: Clear and Appropriate Memory Description: Intact Hallucinations: Auditory (question of ) Delusions: Not Present Thought Process: Intact and Goal Oriented Thought Content: positive for Intact and positive for Goal Oriented Judgement: Good Assessment and Plan Assessment & Plan (1) TIEN (generalized anxiety disorder): Status: Acute Code(s): F41.1 - Generalized anxiety disorder (2) Social anxiety disorder: Status: Acute Code(s): F40.10 - Social phobia, unspecified Plan take lamictal 100mg daily every day take amitriptyline 50mg at bedtime may take hydroxyzine prn sleep Medications: New lamotrigine (Lamictal) 100 mg PO DAILY 90 tabs 0RF Refilled amitriptyline 50 mg (2 x 25 mg) PO DAILY 60 tabs 1RF Discontinued lamotrigine Discontinued Reason: Duplicate 25 mg orally take one tablet daily x 10 days then increase to 2 tablets daily; 60 tabs 0RF Counseling and coordination of Care Pt. Self Management counseling: Maintenance-social rhythm, Med illness tx adherence, Mod caffeine/ETOH intake and Nutrition education and improvement Medication management counseling: Effectiveness, Side effects, Dosing range, Duration, Drug interaction and Adherence Diagnosis and Prognosis Counseling: Accuracy of diagnosis, Prognosis over time, Impact of diagnosis on life functions, Impact of family relationship, Problematic behaviors secondary to diagnosis and Adequacy of current interventions Details: I spent 36 minutes reviewing the record, seeing the patient and documenting in the medical record. Counseling provided to the patient/caregiver as outlined below. Addressed patient/caregiver concerns regarding current medication regime including effective adherence. Addressed patient/caregiver concerns regarding diagnosis and prognosis including accuracy of diagnosis, prognosis over time, impact of diagnosis. Addressed patient/caregiver concerns regarding impact of recent stressors. PFSH Medical History Vitamin D deficiency Hepatic steatosis Alcohol-induced polyneuropathy Alcoholic hepatitis with ascites Alcohol abuse Surgical History History of abdominal paracentesis History of ankle surgery Family History Paternal Grandmother Breast cancer Maternal Grandfather Colon cancer Father Family hx of prostate cancer Mother Hx of skin cancer, basal cell Social History Housing: Apartment Alcohol intake: current Alcohol intake frequency: does not drink Patient Tobacco Use Status: Former Tobacco user Tobacco use type: Cigarette e-Cigarette/Vaping Use: Currently Using Second Hand Smoke Exposure: No Substance Use Type: Marijuana service: No Current occupational status: employed Current occupational exposures/hazards: No Sexual orientation: Lesbian/Betancourt/Homosexual Gender identity: Female Cognitive needs: No Hearing needs: No Vision needs: Yes (glasses) Social History: Patient grew up in [place] with both parents and a sister 3 years older than her. 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 She has recently started a new relationship and is dating. Substance History: Significant alcohol use in the past with alcohol-induced polyneuropathy alcohol hepatitis with ascites she is 2.5 years sober. She vapes and smokes a small amount of marijuana in the evening several times a week. She uses no other street drugs Trauma History: A friend from suicide 2023. Another friend was murdered last year and [place] Coding Level of Care Code Est Pt Level 4 (06771) Diagnoses TIEN (generalized anxiety disorder) F41.1 Social anxiety disorder F40.10
== END 2024-11-26 16:38 | disposition home or self-care (01) ==
LOC: HO.HOP 15:54
PROVIDERS: PCP Internal Medicine; Visit Provider Clinical Nurse Specialist Psychiatric/Mental Health
DX: F41.1 Generalized anxiety disorder (principal); F40.10 Social phobia, unspecified
CPT/HCPCS: 99214

== ENCOUNTER 2024-12-03 15:03 | Outpatient (REF) | payer BC, SELFPAY ==
--- OUTSIDE RECORDS SUMMARY | 2024-12-03 16:19 | XMS_ITS | Encounter Summary ---
Author Organization [facility] Address [address] [place] [address] Phone Care Team Providers Care Peoplesoft Analyst Name Role Phone Jenni Gordon MD Primary Care Provider Unava ilable Encounter Details Date Type Department Care Team (Late st Contact Info) Description 12/23/2011 Documentation EM Family Medicine [address] [place] [address] Family Medicine, Physician [address], [place] [address] Social History Tobacco Use Types Packs/Day Years [...] on filedocumented in this encounter Care Teams Peoplesoft Analyst Relationship Specialty Start Date End Date Jenni Gordon MD PCP - General 12/30/16 documented as of this encounter
== END 2024-12-03 15:04 | disposition home or self-care (01) ==
LOC: HO.SH 15:03
PROVIDERS: Visit Provider Clinical Nurse Specialist Psychiatric/Mental Health
DX: Z01.118 Encounter for examination of ears and hearing with other abnormal findings (principal); H93.293 Other abnormal auditory perceptions, bilateral
CPT/HCPCS: 92557; 92567

== ENCOUNTER 2024-12-24 16:02 | Outpatient (AMB) | payer BC, SELFPAY ==
--- NOTE | 2024-12-24 16:05 | MHC.OFFVISPS ---
Intake Intake Visit Reasons: f/u consultation Safety And Health Manager Required: No Allergies No Known Allergies (No Known Allergies*) Allergy (Verified 05/29/24 15:51) Medication List - Last Reconciled 12/24/24 by Lizzie Coyle APRN amitriptyline 50 mg (2 x 25 mg) PO DAILY hydroxyzine HCl 25 mg PO BEDTIME PRN lamotrigine (Lamictal) 100 mg PO DAILY HPI- Psychiatric Chief Complaint: f/u consultation HPI Narrative: pt reports taking amitriptyline and lamictal more consistently. Pt sleeping better; she reports a week of high anxiety while on vacation with her GF and her GF mother. She was able to cope but her stress level was elevated most of the week almost to the point of panic. Pt had Speech and Hearing consult - results normal; very helpful report. recommended could see ENT if symptoms persist. Pt denies auditory hallucinations this month. She reports she is doing some training of coworkers and this is anxiety provoking as well. Over all coping well. pt denies SI or HI. Pt has one small cyst-like bump on her neck- approximately size of dime. pt denies its itchy, no redness noted. no other signs of rash or skin anomaly. Pt scheduled to see PCP about it. Advised patient if develops more cysts or welts to call pippa as could be lamitcal; at this point does not look like a rash. Past Psychiatric History: History of inpatient treatment for alcohol addiction IOP for alcohol - sober 3+ yrs Subjective Subjective Subjective Medication Compliance: Yes Side effects from medications: No Review of Systems Medical Review of Systems: unchanged Mental Status Exam Mental Status Exam Patient Appearance: Well Grooomed and Appropriate Patient Orientation: Person, Place, Time and Situation Level of Consciousness: Awake and Appropriate Patient Behavior: Appropriate Mood Description: Anxious Affect Description: Anxious Patient Cognition Impaired: No Ability to Follow Directions: Good Speech Pattern: Clear and Appropriate Memory Description: Intact Hallucinations: Auditory (question of ) Delusions: Not Present Thought Process: Intact and Goal Oriented Thought Content: positive for Intact and positive for Goal Oriented Judgement: Good Results Reviewed Results Reviewed: review of audiology report- all WNL Assessment and Plan Assessment & Plan (1) TIEN (generalized anxiety disorder): Status: Acute Code(s): F41.1 - Generalized anxiety disorder (2) Social anxiety disorder: Status: Acute Code(s): F40.10 - Social phobia, unspecified Plan increase lamictal to 150mg daily montior for rash add propranolol 10 mg bid prn anxiety contine amitryptline and hydroxyzine Medications: New propranolol 10 mg PO BID PRN 60 tabs 0RF anxiety Changed From lamotrigine (Lamictal) 100 mg PO DAILY 90 tabs 0RF To lamotrigine (Lamictal) 150 mg (1.5 x 100 mg) PO DAILY 135 tabs 0RF Counseling and coordination of Care Pt. Self Management counseling: Maintenance-social rhythm, Med illness tx adherence, Mod caffeine/ETOH intake and Nutrition education and improvement Medication management counseling: Effectiveness, Side effects, Dosing range, Duration, Drug interaction and Adherence Diagnosis and Prognosis Counseling: Accuracy of diagnosis, Prognosis over time, Impact of diagnosis on life functions, Impact of family relationship, Problematic behaviors secondary to diagnosis and Adequacy of current interventions Details: I spent 45 minutes reviewing the record, seeing the patient and documenting in the medical record. Counseling provided to the patient/caregiver as outlined below. Addressed patient/caregiver concerns regarding current medication regime including effective adherence. Addressed patient/caregiver concerns regarding diagnosis and prognosis including accuracy of diagnosis, prognosis over time, impact of diagnosis. Addressed patient/caregiver concerns regarding impact of recent stressors. PFSH Medical History Vitamin D deficiency Hepatic steatosis Alcohol-induced polyneuropathy Alcoholic hepatitis with ascites Alcohol abuse Surgical History History of abdominal paracentesis History of ankle surgery Family History Paternal Grandmother Breast cancer Maternal Grandfather Colon cancer Father Family hx of prostate cancer Mother Hx of skin cancer, basal cell Social History Housing: Apartment Alcohol intake: current Alcohol intake frequency: does not drink Patient Tobacco Use Status: Former Tobacco user Tobacco use type: Cigarette e-Cigarette/Vaping Use: Currently Using Second Hand Smoke Exposure: No Substance Use Type: Marijuana service: No Current occupational status: employed Current occupational exposures/hazards: No Sexual orientation: Lesbian/Betancourt/Homosexual Gender identity: Female Cognitive needs: No Hearing needs: No Vision needs: Yes (glasses) Social History: Patient grew up in [place] with both parents and a sister 3 years older than her. 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 She has recently started a new relationship and is dating. Substance History: Significant alcohol use in the past with alcohol-induced polyneuropathy alcohol hepatitis with ascites she is 2.5 years sober. She vapes and smokes a small amount of marijuana in the evening several times a week. She uses no other street drugs Trauma History: A friend from suicide 2023. Another friend was murdered last year and [place] Coding Level of Care Code Est Pt Level 5 (99726) Diagnoses TIEN (generalized anxiety disorder) F41.1 Social anxiety disorder F40.10
--- OUTSIDE RECORDS SUMMARY | 2024-12-24 16:12 | XMS_ITS | Encounter Summary ---
Author Organization [facility] Address [address] [place] [address] Phone Care Team Providers Care Dev Manager Name Role Phone Jenni Gordon MD Primary Care Provider Unava ilable Encounter Details Date Type Department Care Team (Late st Contact Info) Description 12/23/2011 Documentation EM Family Medicine [address] [place] [address] Family Medicine, Physician [address], [place] [id number] Social History Tobacco Use Types Packs/Day Years [...] on filedocumented in this encounter Care Teams Dev Manager Relationship Specialty Start Date End Date Jenni Gordon MD PCP - General 12/30/16 documented as of this encounter
== END 2024-12-24 16:22 | disposition home or self-care (01) ==
LOC: HO.HOP 16:02
PROVIDERS: PCP Internal Medicine; Visit Provider Clinical Nurse Specialist Psychiatric/Mental Health
DX: F41.1 Generalized anxiety disorder (principal); F40.10 Social phobia, unspecified
CPT/HCPCS: 99215

== ENCOUNTER 2025-01-09 13:30 | Outpatient (AMB) | payer BC, SELFPAY ==
[2025-01-09 13:35] VITALS: BP 114/76; PULSE 103; TEMP 36.3; O2SAT 99; BMI 22.7
--- NOTE | 2025-01-09 13:35 | MHC.PC.OV ---
Vital Signs 01/09/25 13:35 Height 5 ft 7 in Weight 145 lb 4 oz BMI 22.7 BP 114/76 Blood Pressure Location Lt brachial Position Sitting Pulse 103 H Pulse Source Pulse Oximeter Temp 97.3 F Temp Source Temporal Artery Scan Pulse Oximetry (%) 99 Oxygen Delivery Method Room Air Intake Visit Reasons: annual exam Allergies No Known Allergies (No Known Allergies*) Allergy (Verified 01/09/25 13:56) Medication List - Last Reconciled 01/09/25 by Deangelo Galindo MD amitriptyline 50 mg (2 x 25 mg) PO DAILY hydroxyzine HCl 25 mg PO BEDTIME PRN lamotrigine (Lamictal) 150 mg (1.5 x 100 mg) PO DAILY propranolol 10 mg PO BID PRN Tobacco use date assessed: 01/09/25 Dental Screening Dental Screen Date: 01/09/25 Did you have a dental visit in the last 12 months?: No Did you have a dental problem in the last 6 months where you did not have access to dental care?: No Was dental information given to patient?: Patient has dentist HPI annual exam HPI Details 34-year-old female presents to the office requesting an annual physical. Patient has been seeing the psychiatrist for her general anxiety and is on a few medications. Taking those medication has helped her. Patient is able to continue working and be in a relationship. Her sleep patterns are normal. Continues to have social anxiety. PFSH Medical History Vitamin D deficiency Hepatic steatosis Alcohol-induced polyneuropathy Alcoholic hepatitis with ascites Alcohol abuse Surgical History History of abdominal paracentesis History of ankle surgery Family History Paternal Grandmother Breast cancer Maternal Grandfather Colon cancer Father Family hx of prostate cancer Mother Hx of skin cancer, basal cell Social History Housing: Apartment Alcohol intake: current Alcohol intake frequency: does not drink Patient Tobacco Use Status: Former Tobacco user Tobacco use type: Cigarette e-Cigarette/Vaping Use: Currently Using Second Hand Smoke Exposure: No Substance Use Type: Marijuana service: No Current occupational status: employed Current occupational exposures/hazards: No Sexual orientation: Lesbian/Betancourt/Homosexual Gender identity: Female Cognitive needs: No Hearing needs: No Vision needs: Yes (glasses) Female Reproductive History Menstrual Age of Menarche: 13 Questionnaire PHQ-9 Over the last 2 weeks, how often have you been bothered by any of the following problems? 1. Little interest or pleasure in doing things: several days 2. Feeling down, depressed, or hopeless: several days 3. Trouble falling or staying asleep, or sleeping too much: several days 4. Feeling tired or having little energy: several days 5. Poor appetite or overeating: not at all 6. Feeling bad about yourself - or that you are a failure or have let yourself or your family down: several days 7. Trouble concentrating on things, such as reading the newspaper or watching television: several days 8. Moving or speaking so slowly that other people could have noticed. Or the opposite - being so fidgety or restless that you have been moving around a lot more than usual: not at all 9. Thoughts that you would be better off or of hurting yourself in some way: not at all Total score: 6 Depression Screening Interpretation: Positive Depression Screening Done: Yes Source: Developed by Drs. Vega Zarco, Stephanie Traore, Francisco Javier Harp and colleagues, with an educational lalo from [employer]. Thrive Questionnaire Date Thrive assessed: 01/09/25 I am a: Patient What is your living situation today?: I have a steady place to live Within the past 12 months, did the food you bought not last and you didn't have the money to get more?: Sometimes True Within the past 12 months, did you worry whether your food would run out before you got money to buy more?: Never true Do you have trouble paying for medicines?: No Do you have trouble getting transportation to medical appointments?: No Do you have trouble paying your heating and electricity bill?: No Do you have trouble taking care of your child, family member or friend?: No Do you have trouble with day-to-day activities such as bathing, preparing meals, shopping, managing finances, etc.?: No Are you currently unemployed and looking for a job?: No Are you interested in more education?: Yes Please select the resources that you would like help with: None Currently or been in a relationship where the following occur: No concerns reported THRIVE Score: 1 AUDIT C Alcohol Use Questionnaire (AUDIT-C) 1. How often do you have a drink containing alcohol?: Never 3. How often do you have six or more drinks on one occasion?: Never Total Score: 0 TIEN-7 AMB Questionnaire TIEN-7 Date TIEN - 7 assessed: 01/09/25 Feeling nervous, anxious, or on edge: 1 = Several days Not being able to stop or control worryin = Several days Worrying too much about different things: 1 = Several days Trouble relaxin = Several days Being so restless that it is hard to sit still: 1 = Several days Becoming easily annoyed or irritable: 1 = Several days Feeling afraid as if something awful might happen: 1 = Several days Total TIEN-7 score (0-4 normal; 5-9 mild; 10-14 moderate; 15-21 severe): 7 Source: Developed by Drs. Vega Zarco, Stephanie Traore, Francisco Javier Harp and colleagues, with an educational lalo from [employer]. Physical exam (Primary Care) Vital Signs: Last Vital Signs Temp 97.3 F 01/09/25 13:35 Pulse 103 H 01/09/25 13:35 BP 114/76 01/09/25 13:35 Pulse Ox 99 01/09/25 13:35 Oxygen Delivery Method Room Air 01/09/25 13:35 BMI result Body Mass Index 22.7 Tobacco/Smoking Status: Tobacco use Status Tobacco use date assessed 01/09/25 01/09/25 13:39 Patient Tobacco Use Status Former Tobacco user 01/09/25 13:39 Tobacco use type Cigarette 01/09/25 13:39 e-Cigarette/Vaping Use Currently Using 01/09/25 13:39 PHQ-9: PHQ-9 Score PHQ-9: Total score 6 01/09/25 13:39 Depression Screening Interpretation: Positive Thrive Assessment: Date of Thrive Assessment Date Thrive assessed 01/09/25 01/09/25 13:39 Currently or been in a relationship where the following occur: No concerns reported Const Other: Skin: Neck: 1 cm cyst attached to the skin. General: cooperative and healthy appearing Nutritional Appearance: well nourished Orientation/consciousness: patient oriented x3 Limitations: no limitations HENMT Head: Yes normal to inspection Eyes General: appearance normal, both eyes and all related structures Neck Neck: Yes normal visual inspection Chest Chest palpation & inspection: normal palpation of entire chest wall Resp Effort & Inspection: normal respiratory effort Neuro General: patient oriented x3 Coding Level of Care Code Est Pt Prev Care 18-39y(54485) Diagnoses TIEN (generalized anxiety disorder) F41.1 Annual physical exam Z00.00 Assessment & Plan Assessment & Plan (1) TIEN (generalized anxiety disorder): Code(s): F41.1 - Generalized anxiety disorder Category: Medical Plan: Continue current medications. Amitriptyline will be refilled. (2) Annual physical exam: Code(s): Z00.00 - Encounter for general adult medical examination without abnormal findings Category: Medical Plan: Lesion on the neck is consistent with a sebaceous cyst. Reassurance.
--- OUTSIDE RECORDS SUMMARY | 2025-01-09 13:41 | XMS_ITS | Encounter Summary ---
Author Organization [facility] Address [address] [place] [address] Phone Care Team Providers Care Desk Sergeant Name Role Phone Jenni Gordon MD Primary Care Provider Unava ilable Encounter Details Date Type Department Care Team (Late st Contact Info) Description 12/23/2011 Documentation EM Family Medicine [address] [place] [address] Family Medicine, Physician [address], [place] [address] Social History Tobacco Use Types Packs/Day Years [...] on filedocumented in this encounter Care Teams Desk Sergeant Relationship Specialty Start Date End Date Jenni Gordon MD PCP - General 12/30/16 documented as of this encounter
== END 2025-01-09 13:54 | disposition home or self-care (01) ==
LOC: HO.HMCH 13:31
PROVIDERS: PCP Internal Medicine; Visit Provider Internal Medicine
DX: F41.1 Generalized anxiety disorder (principal); Z00.00 Encounter for general adult medical examination without abnormal findings

== ENCOUNTER 2025-02-04 15:29 | Outpatient (AMB) | payer BC, SELFPAY ==
--- NOTE | 2025-02-04 15:41 | A.OFFPSYCH_ITS ---
Intake Intake Visit Reasons: follow up Blocklayer Required: No Allergies No Known Allergies (No Known Allergies*) Allergy (Verified 01/09/25 13:56) Medication List - Last Reconciled 02/04/25 by Lizzie Coyle APRN amitriptyline 50 mg (2 x 25 mg) PO DAILY hydroxyzine HCl 25 mg PO BEDTIME PRN lamotrigine (Lamictal) 150 mg (1.5 x 100 mg) PO DAILY propranolol 10 mg PO BID PRN HPI- Psychiatric Chief Complaint: follow up HPI Narrative: pt reports she stopped taking all her meds 3 weeks ago. She reports moderate increase in anxiety but as significant as in past. Over all coping well. pt denies SI or HI. pt ambivalet about taking meds; had long discussion re: pros and cons; she will restart the amitriptyline Past Psychiatric History: History of inpatient treatment for alcohol addiction IOP for alcohol - sober 3+ yrs Subjective Subjective Subjective Medication Compliance: Yes Side effects from medications: No Review of Systems Medical Review of Systems: unchanged Mental Status Exam Mental Status Exam Patient Appearance: Well Grooomed and Appropriate Patient Orientation: Person, Place, Time and Situation Level of Consciousness: Awake and Appropriate Patient Behavior: Appropriate Mood Description: Anxious Affect Description: Anxious Patient Cognition Impaired: No Ability to Follow Directions: Good Speech Pattern: Clear and Appropriate Memory Description: Intact Hallucinations: Auditory (question of ) Delusions: Not Present Thought Process: Intact and Goal Oriented Thought Content: positive for Intact and positive for Goal Oriented Judgement: Good Assessment and Plan Assessment & Plan (1) TIEN (generalized anxiety disorder): Status: Acute Code(s): F41.1 - Generalized anxiety disorder (2) Social anxiety disorder: Status: Acute Code(s): F40.10 - Social phobia, unspecified Plan restart amitryptline Medications: Refilled amitriptyline 50 mg (2 x 25 mg) PO DAILY 180 tabs 1RF Discontinued lamotrigine (Lamictal) Discontinued Reason: Patient no longer taking 150 mg (1.5 x 100 mg) PO DAILY 135 tabs 0RF On Hold hydroxyzine HCl Hold Comment: pt stopped 25 mg PO BEDTIME PRN 30 tabs 2RF sleep Counseling and coordination of Care Pt. Self Management counseling: Maintenance-social rhythm, Med illness tx adherence, Mod caffeine/ETOH intake and Nutrition education and improvement Medication management counseling: Effectiveness, Side effects, Dosing range, Duration, Drug interaction and Adherence Diagnosis and Prognosis Counseling: Accuracy of diagnosis, Prognosis over time, Impact of diagnosis on life functions, Impact of family relationship, Problematic behaviors secondary to diagnosis and Adequacy of current interventions Details: I spent 35 minutes reviewing the record, seeing the patient and documenting in the medical record. Counseling provided to the patient/caregiver as outlined below. Addressed patient/caregiver concerns regarding current medication regime including effective adherence. Addressed patient/caregiver concerns regarding diagnosis and prognosis including accuracy of diagnosis, prognosis over time, impact of diagnosis. Addressed patient/caregiver concerns regarding impact of recent stressors. PFSH Medical History Vitamin D deficiency Hepatic steatosis Alcohol-induced polyneuropathy Alcoholic hepatitis with ascites Alcohol abuse Surgical History History of abdominal paracentesis History of ankle surgery Family History Paternal Grandmother Breast cancer Maternal Grandfather Colon cancer Father Family hx of prostate cancer Mother Hx of skin cancer, basal cell Social History Housing: Apartment Alcohol intake: current Alcohol intake frequency: does not drink Patient Tobacco Use Status: Former Tobacco user Tobacco use type: Cigarette e-Cigarette/Vaping Use: Currently Using Second Hand Smoke Exposure: No Substance Use Type: Marijuana service: No Current occupational status: employed Current occupational exposures/hazards: No Sexual orientation: Lesbian/Betancourt/Homosexual Gender identity: Female Cognitive needs: No Hearing needs: No Vision needs: Yes (glasses) Social History: Patient grew up in [place] with both parents and a sister 3 years older than her. 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 She has recently started a new relationship and is dating. Substance History: Significant alcohol use in the past with alcohol-induced polyneuropathy alcohol hepatitis with ascites she is 2.5 years sober. She vapes and smokes a small amount of marijuana in the evening several times a week. She uses no other street drugs Trauma History: A friend from suicide 2023. Another friend was murdered last year and [place] Coding Level of Care Code Est Pt Level 4 (07996) Diagnoses TIEN (generalized anxiety disorder) F41.1 Social anxiety disorder F40.10
--- OUTSIDE RECORDS SUMMARY | 2025-02-04 18:51 | XMS_ITS | Encounter Summary ---
Author Organization [facility] Address [address] [place] [address] Phone Care Team Providers Care Napper Fixer Name Role Phone Jenni Gordon MD Primary Care Provider Unava ilable Encounter Details Date Type Department Care Team (Late st Contact Info) Description 12/23/2011 Documentation EM Family Medicine [address] [place] [address] Family Medicine, Physician [address], [place] [id number] Social History Tobacco Use Types Packs/Day Years [...] on filedocumented in this encounter Care Teams Napper Fixer Relationship Specialty Start Date End Date Jenni Gordon MD PCP - General 12/30/16 documented as of this encounter
--- OUTSIDE RECORDS SUMMARY | 2025-02-04 18:51 | XMS_ITS | Encounter Summary ---
Author Organization [facility] Address [address] [place] [address] Phone Care Team Providers Care Subassembly Supervisor Name Role Phone Jenni Gordon MD Primary Care Provider Unava ilable Encounter Details Date Type Department Care Team (Late st Contact Info) Description 01/05/2017 Conversion Encounter [facility] - [address] [address] Social History Tobacco Use Types Packs/Day Years [...] on filedocumented in this encounter Care Teams Subassembly Supervisor Relationship Specialty Start Date End Date Jenni Gordon MD PCP - General 12/30/16 documented as of this encounter
--- OUTSIDE RECORDS SUMMARY | 2025-02-04 18:51 | XMS_ITS | Encounter Summary ---
Author Organization [facility] Address [address] [place] [address] Phone Care Team Providers Care Market Stall Vendor Name Role Phone Jenni Gordon MD Primary Care Provider Unava ilable Encounter Details Date Type Department Care Team (Late st Contact Info) Description 12/23/2011 Documentation EM Family Medicine [address] [place] [address] Family Medicine, Physician [address], [place] [address] Social History Tobacco Use Types Packs/Day Years [...] on filedocumented in this encounter Care Teams Market Stall Vendor Relationship Specialty Start Date End Date Jenni Gordon MD PCP - General 12/30/16 documented as of this encounter
--- OUTSIDE RECORDS SUMMARY | 2025-02-04 18:51 | XMS_ITS | Clinical Summary ---
Author Organization [facility] Address [address] [place] [address] Phone Care Team Providers Care Bioprocessing Manufacturing Technician Name Role Phone Jenni Gordon MD Primary [...] AM EDT Pulse - - Temperature 36.3 C (97.4 F) 09/22/2009 12:00 AM EDT Respiratory Rate - - Oxygen Saturation - [...] 01/15/1997, Additional history exists Influenza Vaccines (#1) 2024 COVID-19 Vaccine ( season) 2025 HIB Vaccines Completed 12/19/1992, 03/24, 02/19/1992, Additional [...] complete this topic Procedures * Due to [facility] law, this organization might not be sharing sensitive test results. Procedure Name Priority Date/Time Associated Diagnosis Comments CHLAMYDIA AND GONORRHEA, AMPLIFIED Routine 11/15/2011 12:50 PM EDT from Last 3 Months or Most Recently Relevant to Health Maintenance Results * Due to [place] [employer] law, this organization might not be sharing sensitive test results. * Chlamydia and Gonorrhoea, Amplified (11/15/2011 12:50 PM EDT) Pathologist [facility] URINE GC AMP PROBE NEGATIVE [facility] Comment: NO NEISSERIA GONORRHOEAE RNA DETECTED IN THIS PATIENT'S SAMPLE. (REFERENCE RANGE/NORMAL VALUE: NOT DETECTED) NOTE: THIS TEST USES HEALTH EDUCATION SPECIALIST MEDIATED AMPLIFICATION METHOD TO DETECT rRNA [...] TRACHOMATIS RNA DETECTED IN THIS PATIENT'S SAMPLE. (REFERENCE RANGE/NORMAL VALUE: NOT DETECTED) 11/15/2011 12:5 0 PM EDT Narrative [facility] - 11/15/2011 12:50 PM EDT URINE CHLAMYDIA GC AMP PROBE us Jenni Gordon MD LAB MICROBIOLOGY - GENERAL O RDERABLES Final Result [facility] [address] [place] [address], from Last 3 Months or Most Recently Relevant to Health Maintenance Care Teams Bioprocessing Manufacturing Technician Relationship Specialty Start Date End Date Jenni Gordon MD PCP - General 12/30/16
== END 2025-02-04 16:08 | disposition home or self-care (01) ==
LOC: HO.HOP 15:29
PROVIDERS: PCP Internal Medicine; Visit Provider Clinical Nurse Specialist Psychiatric/Mental Health
DX: F41.1 Generalized anxiety disorder (principal); F40.10 Social phobia, unspecified
CPT/HCPCS: 99214